=== PATIENT | female | born 1935 | race Caucasian/White ===

== ENCOUNTER 2024-07-24 11:49 | Outpatient (RCR) | payer SELFPAY | END 2024-10-22 23:59 | disposition home or self-care (01) | LOC: ANHAUDASC 11:49 | DX: Z46.1 Encounter for fitting and adjustment of hearing aid (principal) | CPT/HCPCS: 92593 ==

== ENCOUNTER 2024-08-21 08:28 | Outpatient (CLI) | payer MEDICARE, MEDICAID, SELFPAY ==
--- OUTSIDE RECORDS SUMMARY | 2024-08-21 08:43 | XMS_ITS | Encounter Summary ---
Author Organization [facility] Address [address] [place] [address] Phone Care Team Providers Care [employer] Name Role Phone Meka Cline Primary Care Provider [phone] Erica Mckeon MD Unavailable [phone] Samaria Braden MD Unavailable Leida Timmons MD Unavailable Melinda Damian CHIEF OF SERVICE Unavailable [phone] Aft, Marisa Dela Cruz MD PhD Unavailable [phone] Thelma Martinez CHIEF OF SERVICE Unavailable [phone] Roosevelt Rizzo MD Unavailable Lexie Vaz MD Unavailable [phone] Naina Mccoy OD Unavailable [phone] Nata Teran CHIEF OF SERVICE Primary Care Provider Shahida Mena Unavailable [phone] Reason for Visit * Reason Onset Date Comments SCHEDULE UPDATE 12/22/2019 Encounter Details Date Type Department Care Team (Late st Contact Info) Description 12/22/2019 Telephone [facility] Oncology [address] [place] [address] Asaf, Thelma T., RMA SCHEDULE UPDATE Social History Tobacco Use Types Packs/Day Years Used Date Smoking Tobacco: Never Smokeless Tobacco: Never Alcohol Use Standard Drinks/Week Comments No 0 (1 standard drink = 0.6 oz pur e alcohol) PHQ-2 Answer Date Recorded PHQ-2 Score 0 11/09/2018 Comments No Sex and Gender Information Value Date Recorded Sex Assigned at Not on file Legal Sex Female 3:29 AM [employer] Gender Identity Not on file Sexual Orientation Not on file documented as of this encounter Plan of Treatment Not on file documented as of this encounter Visit Diagnoses Not on filedocumented in this encounter Additional Health Concerns Infection Onset Date Last Indicated Resolved Time COVID: Suspected 11/12/2023 11/12/2023 11/12/2023 12:08 PM CDT COVID19 11/12/2023 11/12/2023 11/22/2023 3:05 AM CDT COVID: Recovered Comment:Added based on recent COVID infection. 11/22/2023 12/13/2023 02/20/2024 3:[address] documented as of this encounter Care Teams [employer] Relationship Specialty Start Date End Date Meka Cline DO PCP - General Family Medicine 10/24/18 07/29/23 Nata Teran NP [address] [address] PCP - General Family Medicine 07/30/23 Erica Mckeon MD [address] [place] [address] [address] [place] [address] Consulting Physician Endocrinology 11/22/18 09/19/23 Samaria Braden MD [address] [place] [address] [place] [address] Consulting Physician Cardiology 11/22/18 Leida Timmons MD [address] [place] [address] [address] [place] [address] Referring Physician Gastroenterology 11/22/18 03/19/22 Melinda Damian, CHIEF OF SERVICE [address] [place] [address] [address] [place] [address] Nurse Practitioner Medical Oncology 11/22/18 CatalinatMarisa MD PhD [address] [place] [address] [address] [place] [address] Surgeon Surgical Oncology 11/22/18 03/19/22 Thelma Martinez, TORRIE [address] [place] [address] [address] [place] [address] Nurse Practitioner Endocrinology Diabetes & Metabolism 01/22/20 Roosevelt Rizzo MD [address] [facility] [address] [place] [address] Consulting Physician Urology 08/25/21 03/19/22 Lexie Vaz MD [address] [facility] [address] [place] [address] Consulting Physician Nephrology 08/25/21 [place] [address] [facility] [address] [place] [address] Optometry 04/08/23 Shahida Mena, PRIMOE [address] [place] [address] Jet Inspector 02/09/24 06/11/24 documented as of this encounter
--- OUTSIDE RECORDS SUMMARY | 2024-08-21 08:43 | XMS_ITS | Continuity of Care Document ---
Author Organization [facility] Address [address] [facility] [address] [place] [phone] Phone Care Team Providers Care Embedder Name Role Phone Naina Mccoy OD Unavailable Unavailable Allergies, Adverse Reactions, Alerts Substance Reaction Status Criticality Sulfa (Sulfonamide Antibiotics) Active No Information Medications Medication Instructions Dosage Effective Dates (start - stop) Status Comments Ozempic 1 mg/dose (4 mg/3 mL) subcutaneous pen injector inject (1MG) by subcutaneous route every week on the same day of each week 1 MG - Active famotidine 20 mg tablet take 1 tablet by oral route 2 times every day 20 MG - Active amlodipine 5 mg tablet take 1 tablet by oral route every day 5 MG - Active nitrofurantoin 25 mg/5 mL oral suspension take 10 milliliter by oral route every 6 hours with food 50 MG - Active rosuvastatin 10 mg tablet take 1 tablet by oral route every day 10 MG - Active Crestor 10 mg tablet take 1 tablet (10MG ) by oral route every day 10 MG - Active spironolactone 25 mg tablet take 1 tablet (25MG) by oral route every day 25 MG - Active glimepiride 4 mg tablet take 1 tablet (4 MG) by oral route every day 4 MG - Active levothyroxine 88 mcg capsule take 1 capsule (88MCG) by oral route every day 88 MCG - Active Procedures Procedure Date Office/outpatient Visit, Est Xcellent A 3000 60 C Office/outpatient Visit, Est Xcellent A 3000 60 C No Charge Refraction Office/outpatient Visit, Est Fundus Photography W/ Report Office/outpatient Visit, Est Office/outpatient Visit, Est Fundus Photography W/ Report Visual Field Examination(s) No Charge GDX Retina Office/outpatient Visit, Est No Charge Optomap Fundus Photos 023 Office/outpatient Visit, Est Eye Exam & Treatment Eye Exam & Treatment Eye Exam & Treatment Post-op Follow-up Visit After Cataract Laser Surgery No Charge Refraction Office/outpatient Visit, Est Eye Exam & Treatment Eye Exam & Treatment Eye Exam & Treatment Eye Exam & Treatment Dilated Retinal Exam W Interpretation Au No Evidence Of Retinopathy In Prior Year Office/outpatient Visit, Est Eye Exam & Treatment Certified EMR Dilated Macular Or Fundus Exam Findings Communicat Macular Or Fundus Exam Performed 2011 Communication Performed Eye Exam & Treatment Dilated Retinal Exam W Interpretation Au No Evidence Of Retinopathy In Prior Year Post-op Follow-up Visit After Cataract Laser Surgery Eye Exam Established Pt Dilated Retinal Exam W Interpretation Ap No Evidence Of Retinopathy In Prior Year Eye Exam & Treatment Post-op Follow-up Visit Post-op Follow-up Visit Remove Cataract, Post Op Care 7 Echo Exam Of Eye-Professional 7 Remove Cataract, Insert Lens,Comanaged M Eye Exam & Treatment Advance Directives Directive Yes / No Effective Date File Name Other Directive No N/A N/A WARNING:The information contained in this section is historical and is provided for information only and does not constitute a legal document or any assurance that the information is still accurate. Please verify the information with the rodriguez of the legal document before using it for clinical purposes. Encounters Encounter Description Practice Location Reason(s) For Visit Diagnoses Date Provider Providers Copied on Encounter Office/outpa tient Visit, [facility], [facility] [address], [place], [place], [address], tel:[phone] [place] dry eye follow up (chief complaint) Dry eye syndrome of bilateral lacrimal glands 4 Darius OD Naina. [facility] [address], [address], [place], [place], [address], [place]. tel:[phone] Erica Mckeon MD.Referri chris Provider: Yuliana Davis OD L, [facility] [address], [place], [address] . tel:[phone] Office/outpa tient Visit, [facility], [facility] [address], [place], [place], [address], tel:[phone] [place] 3 Week Dry Eye FU (chief complaint) Dry eye syndrome of bilateral lacrimal glands 4 Darius OD Naina. [facility] [address], [address], [place], [place], [address], [place]. tel:[phone] Erica Mckeon MD.Referri ng Provider: Yuliana Davis OD L, [address], [place], [address] . tel:[phone] Office/outpa tient Visit, [facility], [facility] [address], [place], [place], [address], tel:[phone] [place] Dry Eye FU (chief complaint) Dry eye syndrome of bilateral lacrimal glands 0 4 Darius OD Naina. [facility] [employer] [address], [address], [place], [place], [address], [place]. tel:[phone] Erica Mckeon MD.Referri ng Provider: [place], [address], [place], [address] . tel:[phone] Office/outpa tient Visit, [facility], [address] [address], [place], [place], [address], [place] tel:[phone] [place] Follow up visit (chief complaint) Dry eye syndrome of bilateral lacrimal glandsRetinal hemorrhage of right eye May- 2 4 Darius OD Naina. [facility] [address], [address], [place], [place], [address], [place]. tel:[phone] Erica Mckeon MD.Referri ng Provider: Yuliana Davis [place] L, [address], [place], [address] . tel:[phone] Office/outpa tient Visit, [facility], [address] [address], [place], [place], [address], [place] tel:[phone] [place] Tearing and redness (chief complaint) Dry eye syndrome of bilateral lacrimal glands Apr- 6 4 Darius OD Naina. [facility] [address], [address], [place], [place], [address], [place]. tel:[phone] Erica Mckeon MD.Referri ng Provider: Yuliana Davis OD L, [address], [place], [address] . tel:[phone] Office/outpa tient Visit, [facility], [facility] [address], [place], [place], [address], [place] tel:[phone] [place] Follow up visit (chief complaint) Retinal hemorrhage of right eyeVisual field defect 2 4 Darius OD Naina. [facility] [address], [address], [place], [place], [address], [place]. tel:[phone] Erica Mckeon MD.Referri ng Provider: Yul[place] Davis [place] L, [address], [place], [address] . tel:[phone] Office/outpa tient Visit, [facility], [address] [place] [address] [address], [place], [place], [address], [place] tel:[phone] SEC [facility] Professional diabetic eye exam (chief complaint) Pseudophakia of both eyesType 2 diabetes mellitus without complicationsD ermatochalasis of both upper eyelidsDry eye syndrome of bilateral lacrimal glandsVisual field defect 3 Darius OD Naina. [address] [place] [address] [address], [address], [place], [place], [address], [place]. tel:[phone] Specialist : Erica Mckeon MD, [address] [facility] [address], [address], [place], [address]. tel:[phone] erring Provider: Yul[place] L, [address], [place], [address] . tel:[phone] [facility], [facility] [address], [place], [place], [address], [place] tel:[phone] SEC [facility] Professional Complete diabetic eye exam (chief complaint) Presence of intraocular lensType 2 diabetes mellitus without complicationsD ry eye syndrome of bilateral lacrimal glands 1 Ho Rodriguez. [address] [facility], [address], [place], [place], [address], [place]. tel:[phone] Erica Mckeon MD.Referri ng Provider: Michael Brandon, [address] [facility] [address], [place], [address] . tel:[phone] [facility], [facility] [address], [place], [place], [address], [place] tel:[phone] [place] Professional Complete Exam (chief complaint) Presence of intraocular lensType 2 diabetes mellitus without complicationsD ermatochalasis of both upper eyelids Apr- 0 Ho Rodriguez. [address] [facility] [address], [place], [place], [address], [place]. tel:[phone] Specialist : Erica Mckeon MD, [address] [place] [address] [address], [place], [address]. tel:[phone] er Provider:, [address] [place] [address] [address], [place], [address]. tel:[phone] erring Provider: Lay Carvajal, [address] [place], [address]. tel:[phone] [facility], [address] [place] [address] [address], [place], [place], [address], [place] [phone] [place] Professional Complete Exam (chief complaint) Type 2 diabetes mellitus without complicationsP seudophakia of both eyesPVD (posterior vitreous detachment), left eye Nov- 8 Ho Rodriguez. [address] [facility] [place], [address], [place]. tel:[phone] Specialist : Erica Mckeon MD, [address] [place] [address] [address], [place], [address]. tel:[phone] erring Provider: Lay Carvajal, [address] [facility], [place], [address]. tel:[phone] [facility], [address] [place] [address] [address], [place], [place], [address], [place] [phone] [place] Professional 1 mo YAG PC PO (chief complaint) Encounter for examination following surgery 7 Alena Chun. [address] [place], [address], [place]. tel:[phone] Referring Provider: Maximo Noel, [address] [facility] [address], [place], [address] . tel:[phone] Office/outpa tient Visit, Est [facility], [address] [place] [address] [address], [place], [place], [address], [place] tel:[phone] [place] Professional Blurry/dec reased vision (chief complaint) Presence of intraocular lensOther secondary cataract, left eyeType 2 diabetes mellitus without complications 7 Alena Gustafsonina. [address] [place], [address], [place]. tel:[phone] Referring Provider: Maximo Noel, [address] [facility] [address], [place], [address] . tel:[phone] [facility], [address] [place] [address] [address], [place], [place], [address], [place] [phone] [place] Professional diabetic eye exam (chief complaint) Presence of intraocular lensDry eye syndrome of bilateral lacrimal glandsEndothel ial corneal dystrophyPtosi s of eyelid, bilateralType 2 diabetes mellitus without complicationsA fter cataract of left eye not obscuring vision 7 Arthur Marsh. [address] [facility] [place], [address], [place]. tel:[phone] Referring Provider: Maximo Noel, [address] [facility] [address], [place], [address] . tel:[phone] [facility], [address] [place] [address] [address], [place], [place], [address], [place] tel:[phone] [place] Professional Yearly-DM (chief complaint) No Information 6 Arthur Marsh. [address] [facility], [facility] [place], [address], [place]. tel:[phone] Referring Provider: Maximo Noel, [address] [facility] [place], [address] . tel:[phone] [facility], [address], [place], [place], [address], tel:[phone] [place] Professional Diabetic eye exam (chief complaint) No Information - 4 Wankum Maximo. [address], [place], [place], [address], . tel:[phone] Referring Provider: Maximo Noel, [address] [facility] [address], [place], [address] . tel:[phone] [facility], [address] [place] [address] [address], [place], [place], [address], tel:[phone] [place] Professional No Information 3 Wankum Maximo. [address] [facility], [address] [place], [address], . tel:[phone] Referring Provider: Maximo Noel, [address], [place], [address] . tel:[phone] [facility], [address] [place] [address] [address], [place], [place], [address], [place] tel:[phone] SEC [facility] No Information 3 Wankum Maximo. [address], [address], [place], [place], [address], [place]. tel:[phone] Office/outpa tient Visit, [facility], [address] [place] [address] [address], [place], [place], [address], [place] tel:[phone] [place] Professional No Information 2 Wankum Maximo. [address], [address] [place], [address], [place]. tel:[phone] Referring Provider: Maximo Noel, [address] [facility], [place], [address] . tel:[phone] [facility], [address], [place], [place], [address], [place] tel:[phone] [place] Professional No Information May- 4-201 2 Ning De La Garza. [address], [place], [address], [place]. tel:[phone] Referring Provider: Maximo Noel, [address] [place], [address] . tel:[phone] [facility], [address], [place], [place], [address], [place] tel:[phone] [place] No Information 8-200 9 Wankum Maximo. [address] [facility], [address] [place], [address], [place]. tel:[phone] [facility], [address], [place], [place], [address], [place] tel:[phone] [place] No Information 7-200 8 Wankum Maximo. [address], [address] [place], [address], [place]. tel:[phone] [facility], [address], [place], [place], [address], [place] tel:[phone] [place] No Information 6-200 8 Wankum Maximo. [address], [address] [place], [address], [place]. tel:[phone] Referring Provider: Maximo Noel, [address] [place] [place], [address] . tel:[phone] [facility], [address], [place], [place], [address], [place] tel:[phone] [place] No Information Apr-2 4-200 8 Wankum Maximo. [address] [employer], [address], [place], [place], [address], [place]. tel:[phone] [facility], [address], [place], [place], [address], [place] tel:[phone] [place] No Information Nov-1 2-200 7 Dinora Sanders. [address], [address], [place], [place], [facility], [place]. tel:[phone] [facility], [address], [place], [place], [address], [place] tel:[phone] [place] No Information May-0 7-200 7 Wankum Maximo. [address] [employer], [address], [place], [place], [address], [place]. tel:[phone] [facility], [address], [place], [place], [address], [place] tel:[phone] [place] Professional No Information Apr-1 6-200 7 Wankum Maximo. [address] [employer], [address], [place], [place], [address], [place]. tel:[phone] [facility], [address], [place], [place], [address], [place] tel:[phone] [place] No Information Mar-2 8-200 7 Dinora Sanders. [address] [employer] [address], [place], [address], [place]. tel:[phone] Referring Provider: Marilyn Simpson, [address] [place], [address]. tel:[phone] [facility], [address] [facility] [address], [place], [place], [address], tel:[phone] [place] No Information 7 Dinora Sanders. [address], [place], [facility], [place]. tel:[phone] Referring Provider: Marilyn Simpson, [address], [place], [place], [facility]. tel:[phone] [facility], [address], [place], [place], [address], tel:[phone] [facility] [place] No Information 7 Dinora Sanders. [address], [place], [facility], [place]. tel:[phone] Referring Provider: Marilyn Simpson, [address], [place], [place], [facility]. tel:[phone] [facility], [address], [place], [place], [address], tel:[phone] [place] Professional No Information 7 Dinora Sanders. [address], [place], [facility], [place]. tel:[phone] Referring Provider: Marilyn Simpson, [address] [place], [place], [facility]. tel:[phone] Family History Family Member Type Diagnosis Age At Onset Problem (finding) Close relative Problem (finding) Diabetes mellitus Payers Payer name Insurance type Covered alliance party ID Authorclaira serafin(s) [employer] [id number] Social History Type Description Quantity Date Captured Comments Alcohol Use Details No Caffeine Use Details No Tobacco Use Status Current non-smoker Smoking Status Never smoker Non-Smoking Tobacco Use Details : No Details Available : No Details Available Sex Female Sexual Orientation Don't Know Gender Identity Female Chief Complaint And Reason For Visit From encounter dated '10/18/2023 13:30'. dry eye follow up (chief complaint). Description: The 88 year old patient presents for a 6 week dryeye follow up. Patient states she took vitamin A and is now finished. Patient is not using any drops. Patient states her eyes are doing pretty good. Speed score 7/28 TBUTT OD-2.61 OS 1.38 Reason For Referral Reason For Referral No Information Plan Of Treatment Date Type Action Status Patient Education Type 2 Diabetes: Care I nstructions completed Patient Education Type 2 Diabetes: Care I nstructions completed History Of Present Illness Encounter Date Complaint History Of Prese nt Illness dry eye follow up The 88 year ol d patient presents for a 6 week dry eye follow up. Patient states she took vitamin A and is now finished. Patient is not using any drops. Patient states her eyes are doing pretty good. Speed score 7/28 TBUTT OD-2.61 OS 1.38 3 Week Dry Eye FU The 88 year ol d patient presents for evaluation of 3 Week Dry Eye FU in the right eye and left eye. Pt states OU does feel better than last visit. Pt has been taking gtts but doesn't know what gtts shes taking. Pt states that gtts make their eyes feel gummy. Dry Eye FU The 88 year old patient presents for evaluation of Dry Eye FU in the right eye and left eye. Pt states that ever since they started using the gtts Ou feels gummy and runny a lot. Pt states in mostly in the morning when they wake up. Pt has not been using any gtts for the last few weeks pt states. Speed score today was 28/28 and TBUT OD 2.2 OS 4.27 Follow up visit The 87 year old patient presents for a 1 month dry eye evaluation. Patient is using Miebo qid ou and Lotemax? bid ou. Patient states her eyes are doing much better then last visit. Speed score 5/28 TBUTT OD 3.44 OS 5.74 Tearing and redness The 87 year old patient presents for evaluation of Tearing and redness in the right eye. Pt. states since a few days after her last visit her OD was tearing and having thick mucus coming out of OD. Pt. states she awakes with lid matted closed. Pt. has also noticed her vision is more blurred in OD. Pt. did see her PCP after last visit and was told after blood work she had a UTI. Pt. is not using any drops or and type of lid scrubs. Follow up visit The 87 year old patient presents for a 4 month follow up with a VF and Mac OCT. Patient is a Type II diabetic. Patient is pseudo ou with yag caps ou. Patient is not sure how her eyes are doing. Patient denies any burning or irritation. A1C 7.4 diabetic eye exam The 87 year ol d patient presents for a complete Type II diabetic exam ou. Patient is pseudo ou with yag caps ou. BS was 170 this am. Patient states she recently had sx for an infection??. Patient c/o since sx for infection OD hurts and gets water pockets underneath. Patient wears reading glasses. Dr. Mckeon treats her diabetes. Complete diabetic eye exam The [age] year old female presents for evaluation of Complete diabetic eye exam in the right eye and left eye. Hx of PCIOL OU, YAG PC OU, and PVD OS. Pt reports VA has worsened slightly at DV x1.5 yrs. Pt is IDDM with A1C 7.9 and BS 94 02/18/21, followed by Dr. Cline. Pt is not using any gtts at this time. Pt denies pain or discomfort. Complete Exam The 83 year old female presents for evaluation of Complete Exam in the right eye and left eye. Hx of PCIOL OU (OD set for NV), YAG PC OU, and PVD OS. Pt is NIDDM II x 31 yrs, followed by Dr. Mckeon, pt reports BS was 127 this am and A1C was 8 about 2 mos ago. Pt denies any changes in VA, OU, since last appt. Pt reports she doesn't use any gtts, OU. Pt reports OU has been dry for a long time and she wonders what she should be using for that. Complete Exam The 82 year old female presents for evaluation of Complete Exam in the right eye and left eye. Hx of PCIOL OU (OD set for NV) and YAG PC OU. Pt is NIDDM II x 30yrs. Dr. Mckeon follows DM. Pt reports BS was 138 this afternoon and A1C was 7 in July/August. Pt denies any changes in VA, OU, since last appt. Pt reports she doesn't use any gtts and no pain, irritation or discomfort today, OU. 1 mo YAG PC PO The 81 year old female presents for 1 mo YAG PC PO in the left eye. Hx of PCIOL OU (OD set for NV) and YAG PC OU. Pt is NIDDM II. Pt reports VA is much better, OS, since YAG PC OS. Pt reports she hasn't noticed any flashes of light, OU. Pt reports she has been noticing a bug/shadow, temporal, OS, since YAG PC OS. Pt reports she doesn't use any gtts and no pain, irritation or discomfort today, OU. Blurry/decreased vision The 81 y ear old female presents for Blurry/decreased vision in the left eye. Patient is a Type II diabetic. Patient states BS is good. Patient is pseudo ou with yag cap OD. Patients OD is for close up and normally wears a contact but is out of them. diabetic eye exam The 81 year ol d female presents for a complete Type II diabetic eye exam ou. BS was 109 yesterday. Patient denies any changes in vision ou. Patient wears a contact lens OD for close up. Yearly-DM The 79 year old female presents for yearly Diabetic Eye Exam. Patient has a history of PCIOL OU, and YAG OD, Diabetes Type 2 with no complications. Patient has been a Type 2 Diabetic, IDDM (takes an injection once daily called moore?), for 20+ years. Patient says her blood sugar this morning was 120 and her last A1C was 6.?% 2 months ago. Patient states she does not take any eye drops. Diabetic eye exam The 78 year ol d female presents for a Diabetic eye exam in the right and left eye. Patient denies any problems or changes. States she needs a renewal of her contact lens RX OD only. Functional Status Date Functional Assessmen t No Information Instructions Date Instruction Additional Infor susan Impression/Plan Impression/Plan Impression/Plan Impression/Plan Impression/Plan Impression/Plan Impression/Plan Impression/Plan Impression/Plan Impression/Plan Return in 6 months w wyatt Carvajal M.D. for Complete Exam. Related to Encounter for examination following surgery Follow up - Return i n 6 months with Lay Carvajal M.D. for Complete Exam. Related to Encounter for examination following surgery Impression/Plan - Go od results after YAG capsulotomy OS on 12/03/16. Doing well. VA improved and IOP well controlled. RTC 6 mths for CEE, sooner prn. Related to Encounter for examination following surgery Presence of intraocu lar lens - Surgery risks, alts and benefits discussed Related to Presence of intraocular lens Impression/Plan - Di abetes type II: no background retinopathy, no signs of neovascularization noted. Discussed ocular and systemic benefits of blood sugar control. Related to Type 2 diabetes mellitus without complications Impression/Plan - Vi sually significant PCO OS. Recommend YAG capsulotomy OS today. R/B/A discussed. Pt agreed and consented. s/p YAG capsulotomy OS on 12-03-16. RTC 2-4 wks for follow up with Dr. Carvajal. Related to Other secondary cataract, left eye Impression/Plan - Ps eudophakic OD, doing well. Pt states she wheres contact lens in OD only and would like the OD CL Rx done by Dr. Gibson on 07/02/16. Will give her OD Rx today. Monitor. Related to Presence of intraocular lens Presence of intraocu lar lens - Educational material given Related to Presence of intraocular lens Follow up - Return i n 1 year with for Complete Exam. Impression/Plan - Di scussed diagnosis in detail with patient. No change contact lens rx OD. Pt will call if wants contact lens rx. Recommend artificial tears prn for dry eyes. Gutatta OU stable no treatment needed at this time. Ptosis OU will continue to monitor. IOLs in good position, open pc OD, pcf OS. Discussed Yag PC OS if ever indicated in the future. Diabetes type II: no background retinopathy, no signs of neovascularization noted. Discussed ocular and systemic benefits of blood sugar control. DM letter sent to Dr Medina. Return to clinic in 1 year for complete diabetic exam or sooner with any problems. Follow up - Return i n 1 year with Maximo Gibson M.D. for Complete Exam. Impression/Plan - Di abetes type II: no background retinopathy, no signs of neovascularization noted. Discussed ocular and systemic benefits of blood sugar control. DM letter sent to Dr Cheng. Pt wears near contact lens OD UV 55 BC 8.6 +3.00. Return to clinic in 1 year for complete exam or sooner with any problems. - DM letters to DR. Keller and Dom tel Related to Diabetes Mellitus Type 2, Uncomplicated - 1yr Related to Diabe jigar Mellitus Type 2, Uncomplicated - UV 55 BC8.6 +3.00 od rx writte n Related to LENS REPLACEMENT NEC pseudo with capsulot romina ou - no tx needed Related to Pseudophakia - 1yr Related to Diabe jigar Type II no bureau director - DM letter Related to Di abetes Type II unhappy with cl from [facility], wears old one from [facility] without brand name,just says 55uv soft cl lens - pt will call with brand name if on box and we will reorder otherwise she'll go back to [facility] Related to Presbyopia wants ctls for cristal perez. - ref [facility]. Pseudophakia, OU - stable. Relat ed to Pseudophakia Diabetes Type II, - no bureau director, no csme, letter to [facility] Related to Diabetes Type II Assessments Type Assessment Date assessment Dry eye syndrome of bilateral la crimal glands Patient Care Teams Name Effective Dates (start - stop) Status Members No Information
--- OUTSIDE RECORDS SUMMARY | 2024-08-21 08:43 | XMS_ITS | Clinical Summary ---
Author Organization [facility] Healthcare Address [address] [place] [address] Care Team Providers Care Senior Core Java Developer Name Role Phone Samaria Braden MD Unavailable Melinda Damian NP Unavailable [phone] Thelma Martinez NP Unavailable [phone] Lexie Vaz MD Unavailable Naina Mccoy OD Unavailable Nata Teran NP Primary Care Provider [phone] Allergies Active Allergy Reactions Criticality Noted Date Comments Furosemide Itching Low 06/02/2023 Lasix has a sulfa component. Sulfa (Sulfonamide Antibiotics) Rash Medium Medications pen needle, diabetic 31 gauge x /16 needle Use to inject insulin 2 times each day DX E11.65 200 each 3 04/24/19 20 Active azelastine (ASTELIN) 137 mcg (0.1 %) nasal sprayIndications:Non-se asonal allergic rhinitis due to pollen Administer 2 sprays into each nostril daily Use in each nostril as directed 60 mL 11 11/06/19 22 Active aspirin 81 mg enteric coated tabletIndications:Hyper tension associated with type 2 diabetes mellitus (HCC),Dyslipidemia with low high density lipoprotein (HDL) cholesterol with hypertriglyceridemia due to type 2 diabetes mellitus (HCC) TAKE 1 TABLET BY MOUTH EVERY DAY 90 tablet 3 01/27/20 22 Active lancets misc Use to monitor blood glucose two times daily DX E11.65 200 each 3 01/02/20 23 Active famotidine (PEPCID) 20 mg tabletIndications:Laryn gopharyngeal reflux (LPR) Take 1 tablet (20 mg total) by mouth 2 (two) times a day 180 tablet 2 02/26/20 23 Active loteprednol (LOTEMAX) 0.5 % ophthalmic suspension Administer 1 drop into affected eye(s) every 12 hours 04/27/19 24 Active perfluorohexyloctane, PF, (Miebo) 100 % drops Administer 1 drop into affected eye(s) every 6 hours 04/27/19 24 Active cycloSPORINE (RESTASIS) 0.05 % ophthalmic emulsion Administer 1 drop into affected eye(s) every 12 hours 08/09/19 24 Active amLODIPine (NORVASC) 5 mg tablet TAKE 1 TABLET (5 MG TOTAL) BY MOUTH DAILY. 90 tablet 3 10/11/19 24 2024 Active semaglutide (Ozempic) 0.25 mg or 0.5 mg (2 mg/3 mL) pen injector injectionIndications:ty pe 2 diabetes mellitus Inject 0.5 mg under the skin once a week E11.65 9 mL 3 10/13/19 24 Active docusate sodium (COLACE) 100 mg capsuleIndications:cons tipation Take 2 tablets daily for constipation. 180 capsule 4 01/31/20 24 Active bisacodyl EC (DULCOLAX EC) 5 mg EC tabletIndications:Bowel Evacuation,constipation Take 2 tablets (10 mg total) by mouth daily . Take to have at least 3 bowel movement weekly. 180 tablet 4 01/31/20 24 Active glimepiride (AMARYL) 2 mg tabletIndications:Type 2 diabetes mellitus with hyperglycemia, without long-term current use of insulin (HCC) Take 2 tablets in the am and 1 tablet in the afternoon. e11.9 270 tablet 4 01/31/20 24 Active fluticasone propionate (FLONASE) 50 mcg/actuation nasal spray SPRAY 2 SPRAYS INTO EACH NOSTRIL EVERY DAY 48 mL 3 02/07/20 24 Active lancets misc 1 each by other route 2 (two) times a day Use to monitor blood sugar daily. E11.65 200 each 4 05/04/19 25 Active blood-glucose meter kit Use daily as directed for monitoring of blood sugar for diabetes. E11.65 1 kit 1 05/04/19 Active blood glucose diagnostic (glucose blood) strip Check blood sugar 2x times a day or as directed. E11.65 200 each 4 05/04/19 Active levothyroxine (SYNTHROID) 88 mcg tablet Take 1 tablet (88 mcg total) by mouth daily 90 tablet 3 05/18/19 25 2025 Active Active Problems Problem Noted Date Diagnosed Date Need for hepatitis B screening test 03/06/2024 COVID-19 11/12/2023 Assessment & Plan (11/12/2023 6:45 PM CDT): POCT COVID-19 is positive. Discussed diagnosis with patient. Significantly increase oral fluids Fluid replacement with electrolytes include Pedialyte, Gatorade If experiencing diarrhea and/or vomiting, drink 4-8 oz of fluids after every episode until symptoms resolve Good handwashing Try to minimize exposure to others Monitor for signs/symptoms of dehydration or worsening of symptoms Get adequate rest Diet as tolerated, BRAT (bananas, rice, applesauce, toast) is good to help reinitiate solids Follow up if symptoms are not resolving Start on Paxlovid as discussed. Hold simvastatin while taking the Paxlovid. Acute cough 11/12/2023 Assessment & Plan (11/12/2023 6:40 PM CDT): Discussed cough related to PND versus COVID 19. Will have her start on some fluticasone to try to reduce some of the PND. Can take Mucinex DM if the cough persists. Low grade fever 11/12/2023 Assessment & Plan (11/12/2023 6:42 PM CDT): Temperature 99.2 , typically runs a contra temp, was 96.8 on 08/31/2023. Discussed Tylenol p.r.n. to reduce fever and lessen any pain. Sensation of pressure in bladder area 09/20/2023 Assessment & Plan (09/20/2023 2:34 PM CDT): This is an ongoing complaint She has seen Urology but reports having increased bladder pressure today Urinalysis reflex to culture and micro ordered Screening for osteoporosis 07/30/2023 Assessment & Plan (07/30/2023 4:18 PM CDT): DEXA scan ordered Acute cystitis without hematuria 07/30/2023 Assessment & Plan (07/30/2023 4:19 PM CDT): Discussed diagnosis. Treat with nitrofurantoin 100 mg b.i.d. x7 days. Instructed to increase fluids especially sugar free cranberry juice. Send urine for UA with reflex to C&S. Instructed patient to follow-up if symptoms are not resolving Facial lesion 07/30/2023 Assessment & Plan (08/31/2023 6:49 PM CDT): Referral to different web design instructor as requested. No visible change in facial lesion Assessment & Plan (07/30/2023 4:20 PM CDT): Referral to dermatology as requested Disorder of lacrimal gland 07/29/2023 Retinal hemorrhage of right eye 04/08/2023 Assessment & Plan (04/08/2023 3:29 PM COIN MACHINE MECHANIC): Labs ordered per program scheduler's request. Dysuria 04/08/2023 Mild aortic stenosis 2022 Non-seasonal allergic rhinitis due to pollen Assessment & Plan (11/12/2023 6:44 PM CDT): Trial fluticasone nasal spray as discussed. Assessment & Plan (11/05/2021 10:44 AM CDT): Nasal saline spray (Simply saline, [employer] Remedies, [place], [place]) 2 second sprays or 2 squeezes into each nostril while looking down over the sink, do not need to sniff in. Astelin (azelastine) 2 sprays into each nostril while looking down over the sink, do not sniff in or blow nose after use for at least 30 minutes daily Sensorineural hearing loss ( SNHL) of left ear with restricted hearing of right ear 11/05/2021 Assessment & Plan (11/05/2021 10:44 AM CDT): Continue Hearing aids Obtained hearing test from [facility] [address] [id number] [phone] Decreased hearing of both ears 08/25/2021 Assessment & Plan (08/31/2023 6:54 PM CDT): Bilateral hearing aids, has difficulty hearing even with them. Discussed following up with the medical education specialist to make sure her hearing aids are in good working order Assessment & Plan (08/25/2021 11:16 AM CDT): Referred to ENT for further eval/mgmt. Urinary frequency 08/25/2021 Assessment & Plan (09/03/2022 3:52 PM CDT): Chronic, referred to urology for further eval/mgmt. Assessment & Plan (03/23/2022 10:08 AM COIN MACHINE MECHANIC): Labs ordered, will follow. Assessment & Plan (08/25/2021 11:16 AM CDT): UA ordered, will follow. Chronic pain syndrome 01/31/2021 Assessment & Plan (08/31/2023 6:53 PM CDT): Patient does not take any analgesics Assessment & Plan (01/31/2021 12:35 PM COIN MACHINE MECHANIC): Referred to pain mgmt per patient's request. Traumatic complete tear of left rotator cuff 02/2021 Assessment & Plan (01/31/2021 12:35 PM COIN MACHINE MECHANIC): H/o of rotator cuff injury, patient would like to discuss Tx with Ortho at this time. Referral placed. Postnasal drip 08/22/2020 Assessment & Plan (09/03/2022 3:53 PM CDT): Zyrtec daily recommended. Stage 3a chronic kidney disease 02/05/2020 Assessment & Plan (11/12/2023 6:43 PM CDT): Stressed need to increase fluids. Renal dosing on the Paxlovid Assessment & Plan (09/03/2022 3:57 PM CDT): Stable, increase water intake, continue losartan. Assessment & Plan (01/31/2021 12:34 PM COIN MACHINE MECHANIC): Stable, cont current meds. Assessment & Plan (02/05/2020 3:19 PM COIN MACHINE MECHANIC): Increase water intake, continue current medications. Influenza vaccine refused 03/28/2019 Urge incontinence of urine 11/22/2018 Assessment & Plan (09/03/2022 3:57 PM CDT): Chronic, referred to urology for further eval/mgmt. Assessment & Plan (03/28/2019 11:30 AM COIN MACHINE MECHANIC): Clinically improved, continue current meds. Assessment & Plan (11/22/2018 10:33 AM CDT): Side-effects from oxybutynin, discontinue. Referred to urology. Patient to continue to use bladder leak pads. Overweight with body mass in dex (BMI) of 26 to 26.9 in adult 11/22/2018 Assessment & Plan (03/06/2024 4:02 PM COIN MACHINE MECHANIC): BMI 26.73. Assessment & Plan (08/31/2023 6:52 PM CDT): BMI 27.10. Encourage weight loss Assessment & Plan (07/30/2023 4:18 PM CDT): BMI 26.08 Assessment & Plan (03/09/2023 2:51 PM COIN MACHINE MECHANIC): This is a chronic condition which continues 2 lb weight gain since last office visit Encouraged continue healthy eating Assessment & Plan (03/28/2019 11:31 AM COIN MACHINE MECHANIC): Improved. Encouraged patient to decrease weight, increase daily exercise, and modify diet. Assessment & Plan (11/22/2018 10:34 AM CDT): Worsening. Encouraged patient to decrease weight, increase daily exercise, and modify diet. Constipation 10/26/2018 Overview (10/26/2018): Added automatically from request for surgery [id number] Rotator cuff tear, non-traumatic, left 8 Assessment & Plan (01/03/2020 11:15 AM CDT): Ultrasound done in November of 2017. Patient states she fell 1 year ago. I am unsure if the fall occurred 1 year or 2 years ago. However she is complaining of ongoing left shoulder pain. She also complains of a pulling sensation from her breast surgery status post breast cancer. Patient was requesting refill on tramadol which she had not had filled since May of 2018 it appears. [facility] checked and there is no record of tramadol being filled in the past year. I was hesitant to restart filling tramadol. Patient states she had a large supply and had been taking it at bedtime an 1 during the day as needed. I told her I did not want to refill the tramadol at this time but would start anti-inflammatories naproxen 500 b.i.d. and refer her to orthopedics again to see if there is something that could be done about the pain in her shoulder. Assessment & Plan (03/28/2019 11:30 AM COIN MACHINE MECHANIC): Unable to see Ortho because they did not take her insurance, she now has new insurance. Contact info given to patient to contact Ortho to try to honorio appt. Assessment & Plan (11/22/2018 10:33 AM CDT): Symptomatic, referred to Ortho. For further eval/mgmt. Vitamin D deficiency 11/16/2017 Assessment & Plan (08/31/2023 6:52 PM CDT): Continue vitamin-D supplement Assessment & Plan (07/30/2023 4:17 PM CDT): Vitamin-D level ordered Assessment & Plan (03/28/2019 11:29 AM COIN MACHINE MECHANIC): Asx. Continue current therapy. Assessment & Plan (11/22/2018 10:30 AM CDT): Take daily supplement of vitD3 2000 iu daily. HER2-positive carcinoma of left breast 8 Assessment & Plan (03/28/2019 11:31 AM COIN MACHINE MECHANIC): Followed by oncology. Chronic eczematous otitis externa of both ears 0 09/06/2017 Assessment & Plan (09/06/2017 8:36 AM CDT): Today's examination revealed evidence of eczema type changes to the external auditory canal causing patient's ear pain and itching. No obvious infectious process appreciated. Patient will be placed on topical steroid cream applied b.i.d. times 10 days and p.r.n.. Patient will follow back up in 3 weeks should her symptoms continue to persist. Laryngopharyngeal reflux (LPR) 09/06/2017 Assessment & Plan (03/03/2023 9:13 PM COIN MACHINE MECHANIC): Asymptomatic. Stable. Continue current prescription medications, famotidine. Assessment & Plan (03/23/2022 10:10 AM COIN MACHINE MECHANIC): Clinically improved, continue current prescription medications. Assessment & Plan (08/22/2020 1:09 PM CDT): Stable. Cont. Current meds. Assessment & Plan (07/12/2019 9:50 AM CDT): Symptomatic, trial of famotidine. Rx sent. Do not take ranitidine. Assessment & Plan (03/28/2019 11:29 AM COIN MACHINE MECHANIC): Clinically improved, continue current meds. Assessment & Plan (11/22/2018 10:32 AM CDT): Clinically improved, continue current meds. Ranitidine 300mg qd, managed by ENT. Assessment & Plan (09/06/2017 8:37 AM CDT): Patient is also exhibiting symptoms of laryngopharyngeal reflux. She has had gradual increased difficulties with swallowing primarily solid foods with excessive mucus production, throat clearing and foreign body sensation. Patient will be placed on Zantac 150 mg b.i.d.. Patient was provided with educational material regarding reflux precautions. Patient was instructed to refrain from eating a meal approximately 3 hours prior to bedtime. Patient was instructed to elevate the head of the bed by approximately 8 inches. Patient was to refrain from consuming spicy greasy fatty foods, dairy products, and excessive caffeine use. Patient was also advised to increase water consumption. Patient was also instructed on weight reduction and exercise regimen. Patient was also instructed on the importance of compliance with medications. 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 Assessment & Plan (01/31/2024 5:39 PM COIN MACHINE MECHANIC): This is a chronic condition which is at goal goal of TSH between 0.3 to 4.2 mclUnits/ml Lab Results Component Value Date TSH 2.44 09/20/2023 TSH 5.50 (H) 07/30/2023 TSH 0.32 04/08/2023 Continue Levothryoxine 75 mcg po daily in am Discussed the importance of taking Levothryoxine on a empty stomach, which means one hour before eating or two hours after eating, food in the stomach will interfere with absorption of Levothyroxine, Calcium, antacids and iron supplements will interfere with the absorption of Levothyroxine, encouraged to take these at a different time of the day. Assessment & Plan (09/20/2023 2:36 PM CDT): This is a chronic condition which is elevated, not at goal goal of TSH between 0.3 to 4.2 mclUnits/ml Personally reviewed lab. Lab Results Component Value Date TSH 5.50 (H) 07/30/2023 TSH 0.32 04/08/2023 TSH 0.12 (L) 06/23/2022 Continue Levothryoxine 75 mcg po daily in am Discussed the importance of taking Levothryoxine on a empty stomach, which means one hour before eating or two hours after eating. Discussed food in the stomach will interfere with absorption of Levothyroxine. Discussed Calcium, antacids and iron supplements will interfere with the absorption of Levothyroxine, encouraged to take these at a different time of the day. Repeat TSH cascade today Assessment & Plan (08/31/2023 6:50 PM CDT): Asymptomatic. Continue levothyroxine 75 mcg daily Assessment & Plan (07/30/2023 4:15 PM CDT): Continue levothyroxine 75 mcg daily. Thyroid cascade ordered Assessment & Plan (04/08/2023 3:29 PM COIN MACHINE MECHANIC): Most recent TSH was out of range, will repeat TSH. Managed by endocrinology. Assessment & Plan (03/03/2023 9:14 PM COIN MACHINE MECHANIC): Asymptomatic. Stable. Continue current prescription medications, levothyroxine. Managed by Endocrinology. Assessment & Plan (06/23/2022 10:36 AM CDT): This is a chronic condition which is not at goal. Personally reviewed lab. Lab Results Component Value Date TSH 7.99 (H) 03/20/2022 TSH 0.40 08/25/2021 TSH 0.76 08/22/2020 Goal is for TSH to be between 0.3 to 4.2 mclUnits/ml Continue Levothryoxine 100 mcg po daily in am Discussed the importance of taking Levothryoxine on a empty stomach, which means one hour before eating or two hours after eating. Discussed food in the stomach will interfere with absorption of Levothyroxine. Discussed Calcium, antacids and iron supplements will interfere with the absorption of Levothyroxine, encouraged to take these at a different time of the day. Repeat tsh. Assessment & Plan (03/23/2022 10:09 AM COIN MACHINE MECHANIC): Asymptomatic. Stable. Continue current prescription medications. Assessment & Plan (02/20/2022 12:27 PM COIN MACHINE MECHANIC): This is a chronic condition which is stable, at goal. Personally reviewed lab. Lab Results Component Value Date TSH 0.40 08/25/2021 TSH 0.76 08/22/2020 TSH 0.47 01/03/2020 Goal is for TSH to be between 0.3 to 4.2 mclUnits/ml Continue on Levothryoxine 88 mcg po daily in am Discussed the importance of taking Levothryoxine on a empty stomach, which means one hour before eating or two hours after eating. Discussed food in the stomach will interfere with absorption of Levothyroxine. Discussed Calcium, antacids and iron supplements will interfere with the absorption of Levothyroxine, encouraged to take these at a different time of the day. Assessment & Plan (11/10/2021 12:29 PM CDT): This is a chronic condition which is stable, at goal. Personally reviewed lab. Lab Results Component Value Date TSH 0.40 08/25/2021 TSH 0.76 08/22/2020 TSH 0.47 01/03/2020 Goal is for TSH to be between 0.3 to 4.2 mclUnits/ml Continue on Levothryoxine 88 mcg po daily in am Discussed the importance of taking Levothryoxine on a empty stomach, which means one hour before eating or two hours after eating. Discussed food in the stomach will interfere with absorption of Levothyroxine. Discussed Calcium, antacids and iron supplements will interfere with the absorption of Levothyroxine, encouraged to take these at a different time of the day. Assessment & Plan (08/25/2021 11:10 AM CDT): Asymptomatic. Stable. Continue current prescription medications. Assessment & Plan (03/04/2021 3:24 PM COIN MACHINE MECHANIC): Asymptomatic. Stable. Continue current prescription medications. Assessment & Plan (08/22/2020 1:08 PM CDT): Asx. Continue current therapy. Assessment & Plan (02/05/2020 3:19 PM COIN MACHINE MECHANIC): Asx. Continue current therapy. Assessment & Plan (01/03/2020 11:13 AM CDT): Check TSH today. Continue current medication. Assessment & Plan (07/12/2019 9:50 AM CDT): Cont current dosage of levothyroxine 88 mcg daily. Will not repeat blood work at this time d/t COVID outbreak and patient's high-risk. Assessment & Plan (03/28/2019 11:29 AM COIN MACHINE MECHANIC): Asx. Continue current therapy. Assessment & Plan (11/22/2018 10:32 AM CDT): Symptomatic, will check TSH. Will follow. Continue levothyroxine 88 mcg qd. Assessment & Plan (08/10/2017 1:28 PM CDT): Patient with history of Graves' disease and treated with DOWNEY. Patient is clinically euthyroid Levothyroxine is being managed by Dr. Nayak TSH was normal in March. Pt. Has bradycardia, fatigue, leg swelling Pt. Will be seeing her PCP on Wednesday Type 2 diabetes mellitus wit h hyperglycemia, without long-term current use of insulin 04/23/2015 Overview (11/22/2018): Managed by Endocrinology-Dr. Mckeon Assessment & Plan (01/31/2024 5:38 PM COIN MACHINE MECHANIC): This is a chronic condition which is elevated, not at goal . Goal is less than 7%. Personally reviewed most recent A1c - Lab Results Component Value Date HGBA1C 8.2 01/31/2024 Personally reviewed POC blood sugar- elevated, not at goal of 80-180 Lab Results Component Value Date POCGLU 222 01/31/2024 Medication- Continue on Ozempic 0.5mg weekly, Colace 100 mg 2 tabs nightly Dulcolax 2 tablets nightly-encouraged to have a bowel movement 3 times per week change glimeperide 2mg take 2 tabs in the a.m., and 1 tab in the p.m. Monitor blood sugar 2times a day. Encouraged annual eye exam. Monofilament foot exam completed. Protective senses diminished but intact eGFR- 52 Kidney function-abnormal Urine microalbumin/creatinine ratio - at goal. Goal is <30 Continue amlodipine, HCTZ Assessment & Plan (09/20/2023 2:35 PM CDT): This is a chronic condition which is elevated but remains at goal . Goal is less than 7-8% due to age. Personally reviewed most recent A1c - Lab Results Component Value Date HGBA1C 8.0 (H) 07/30/2023 Personally reviewed POC blood sugar- not at goal of 80-180 Lab Results Component Value Date POCGLU 219 09/20/2023 Medication-continue Ozempic 0.5 mg, weekly continue glimepiride 2 mg twice daily Monitor blood sugar daily alternating a.m. and p.m. Encouraged annual eye exam. Personally reviewed CMP eGFR- 52 Kidney function-abnormal Urine microalbumin/creatinine ratio - at goal. Goal is <30 Continue amlodipine, hydrochlorothiazide Assessment & Plan (08/31/2023 6:51 PM CDT): Continue to limit carbohydrates in diet and take current medications. Has appointment to follow up with Thelma Martinez NP endocrinology on 09/20/2023 Assessment & Plan (07/30/2023 4:16 PM CDT): Continue to limit carbohydrates in diet. Continue current medications. Managed by endocrinology has appointment on 09/20/2023 with Thelma Martinez NP Assessment & Plan (03/09/2023 2:49 PM COIN MACHINE MECHANIC): This is a chronic condition which is at goal of less than 7%. Personally reviewed most recent A1c - Lab Results Component Value Date HGBA1C 7.4 03/09/2023 Personally reviewed POC blood sugar- not at goal 80-180 Lab Results Component Value Date POCGLU 210 03/09/2023 Medication- Continue Ozempic 0.5mg weekly, continue glimeperide 2mg twice daily. Monitor blood sugar 2 times a day. Encouraged annual eye exam. Monofilament foot exam completed. loss of protective senses. Personally reviewed CMP eGFR- 61 Kidney function- abnormal Urine microalbumin/creatinine ratio - at goal <30 not treated with pricilla/arb. Treated with amlodipine B/P today-at goal of <140/90. continue amlodpine Personally reviewed lipid panel. at Goal of less than 70. Continue rosuvastatin Assessment & Plan (03/03/2023 9:14 PM COIN MACHINE MECHANIC): A1c at goal of less than 8.0, continue current prescription medications, glimepiride, rosuvastatin, Ozempic. Managed by Endocrinology. Assessment & Plan (11/09/2022 11:37 AM CDT): This is a chronic condition which has worsening but remains at goal of less than 8%. She reports undergoing some recent mouth surgery at [facility]. I explain even though her A1c has increased that does not mean that we want to increase her medication. Especially since she is 87 and is somewhat frail. We discussed the importance of avoiding hypoglycemia which can lead injury in the elderly. We decided we will see each other again in 3 months if her blood sugars remain elevated then we can set her increasing her medication. Personally reviewed most recent A1c - Lab Results Component Value Date HGBA1C 7.8 11/09/2022 Personally reviewed POC blood sugar- not at goal 80-180 Lab Results Component Value Date POCGLU 221 11/09/2022 Medication- Continue Ozempic 0.5mg weekly, continue glimeperide 2mg twice daily. Monitor blood sugar 2 times a day. Encouraged annual eye exam. Monofilament foot exam completed. protective senses intact loss of protective senses. Treated with Gabapentin/Lyrica Personally reviewed CMP eGFR-54 Kidney function-abnormal Urine microalbumin/creatinine ratio - at goal <30 not treated with pricilla/arb, treated with amlodipine B/P today- not at goal of <140/90. continue amlodipine. Personally reviewed lipid panel. Not at Goal of less than 70. Continue rosuvastatin, Assessment & Plan (09/03/2022 3:54 PM CDT): A1c at goal of less than 8.0, continue current prescription medications, glimepiride, losartan, rosuvastatin, Ozempic. Managed by endocrinology. Assessment & Plan (06/23/2022 10:35 AM CDT): This is a chronic condition which is at goal of less than 8%. Personally reviewed most recent A1c - Lab Results Component Value Date HGBA1C 7.3 06/23/2022 Personally reviewed POC blood sugar- not at goal 80-180 Lab Results Component Value Date POCGLU 197 06/23/2022 Medication- Continue ozempic 0.5mg weekly. Decrease glimeperide to 2mg twice daily to avoid morning hypoglycemia. Monitor blood sugar 1- 2x times a day. Encouraged annual eye exam. Monofilament exam- decreased sensation to feet, but still some sensation is present. sees Dr. Flores. Urine microalbumin/creatinine ratio - At goal of <30, continue lisinopril . Personally reviewed labs: GFR- 71 Kidney function- normal B/P today-at goal of less than 140/90. Continue lisinopril. personally reviewed LDL-82. At goal of less than 70. continue crestor 10mg daily. Assessment & Plan (03/23/2022 10:09 AM COIN MACHINE MECHANIC): A1c at goal of less than 8.0, continue current prescription medications. Managed by Endocrinology. Assessment & Plan (02/20/2022 12:26 PM COIN MACHINE MECHANIC): This is a chronic condition which is at goal of less than 8% with morning hypoglycemia. Personally reviewed A1c-7.3%, at goal less than 8%. Personally reviewed blood sugar-229. Not At goal 80-180 Medication- Continue ozempic 0.5mg weekly. Decrease glimeperide to 2mg twice daily to avoid morning hypoglycemia. Monitor blood sugar 2x times a day. Encouraged annual eye exam. Monofilament exam- decreased sensation to feet, but still some sensation is present. sees Dr. Flores. Urine microalbumin/creatinine ratio - Latest Reference Range & Units 03/04/21 15:00 Microalbumin, POC mg/L 10 continue on lisinopril . At goal of <30 Personally reviewed labs: GFR- 71 Kidney function- abnormal B/P today- not at goal of less than 140/90 l. States,not taking blood pressure medication as it makes her too weak.. Encouraged her to take lisinopril as ordered. personally reviewed LDL- 59. At goal of less than 70 continue crestor 10mg daily. No history of macrovascular disease - CVA, [place]. Assessment & Plan (11/10/2021 12:28 PM CDT): This is a chronic condition which is not at goal of less than 8%. Personally reviewed A1c-8.1%, not at goal less than 8%. Personally reviewed blood sugar 171. At goal 80-180 Medication- Continue ozempic 0.5mg weekly and glimeperide to 4mg twice daily. Monitor blood sugar 2x times a day. Encouraged annual eye exam. Monofilament exam- decreased sensation to feet, but still some sensation is present. sees Dr. Flores. Urine microalbumin/creatinine ratio - Latest Reference Range & Units 03/04/21 15:00 Microalbumin, POC mg/L 10 continue on lisinopril 10mg at goal <30 Personally reviewed labs: GFR- 75 Kidney function- abnormal B/P today- 138/64 , currently not taking blood pressure medication. States her blood pressure was going to low. Encouraged her to notify Dr. Cline and Dr. Braden, at Goal blood pressure is <140/90 and as close to 120/80 as possible. personally reviewed LDL- 59. At goal of less than 70 on crestor 10mg daily. No history of macrovascular disease - CVA, [place]. Assessment & Plan (08/25/2021 11:10 AM CDT): A1c at goal of < 8.0. cont current Rx meds, managed by endocrinology. Assessment & Plan (08/08/2021 2:04 PM CDT): This is a chronic condition which is at goal of less than 8%. Personally reviewed A1c-7.4%, at goal less than 8%. Personally reviewed blood sugar 113. At goal 80-180 Medication- Continue ozempic 0.5mg weekly and glimeperide to 4mg twice daily. Monitor blood sugar 2x times a day. Encouraged annual eye exam. Monofilament exam- decreased sensation to feet, but still some sensation is present. sees Dr. Flores. Urine microalbumin/creatinine ratio - 19 currently on lisinopril 10mg at goal <30 Personally reviewed labs: BUN- 16, creatinine- 0.74 GFR- 79 Kidney function- abnormal B/P today- 162/76 , currently not taking blood pressure medication. States her blood pressure was going to low. Encouraged her to notify Dr. Cline and Dr. Braden, at Goal blood pressure is <140/90 and as close to 120/80 as possible. personally reviewed LDL- 56. At goal of less than 70 on crestor 10mg daily. No history of macrovascular disease - CVA, [place]. Assessment & Plan (03/04/2021 3:24 PM COIN MACHINE MECHANIC): microalbumin less than 30. Managed by endocrinology. Continue current meds. Assessment & Plan (12/31/2020 3:44 PM CDT): This is a chronic condition which is not at goal of less than 8%. Personally reviewed A1c-8.5%, not at goal less than 8%. Personally reviewed blood sugar 222. At goal 80-180 Medication- Continue ozempic 0.5mg weekly and increase glimeperide to 4mg twice daily. Monitor blood sugar 2x times a day. Encouraged annual eye exam. last dilated eye exam was 05/19/2019. Appt made for 10/19/20 Monofilament exam- decreased sensation to feet, but still some sensation is present. sees Dr. Flores. Urine microalbumin/creatinine ratio - 19 currently on lisinopril 10mg at goal <30 Personally reviewed labs: (08/22/20) BUN- 21, creatinine- 0.90 GFR- 58 Kidney function-slightly abnormal B/P today- 130/64 , currently not taking blood pressure medication. States her blood pressure was going to low. Encouraged her to notify Dr. Cline and Dr. Braden, at Goal blood pressure is <140/90 and as close to 120/80 as possible. personally reviewed LDL- 65. At goal of less than 70 on crestor 10mg daily. No history of macrovascular disease - CVA, [place]. Assessment & Plan (09/26/2020 3:57 PM CDT): This is a chronic condition which is stable, controlled, at goal of less than 8%. Personally reviewed A1c- 7.8%, at goal less than 8%. Personally reviewed blood sugar 182. At goal 80-180 Medication- Continue ozempic 0.5mg weekly and glimeperide to 4mg daily. Monitor blood sugar 2x times a day. Encouraged annual eye exam. last dilated eye exam was 05/19/2019. Appt made for 10/19/20 Monofilament exam- decreased sensation to feet, but still some sensation is present. sees Dr. Flores. Urine microalbumin/creatinine ratio - 19 currently on lisinopril 10mg at goal <30 Personally reviewed labs: (08/22/20) BUN- 21, creatinine- 0.90 GFR- 58 Kidney function-slightly abnormal B/P today- 120/64 , currently on metoprolol, lisinopril 10 mg po daily, at Goal blood pressure is <140/90 and as close to 120/80 as possible. personally reviewed LDL- 51. At goal of less than 70 on crestor 10mg daily. No history of macrovascular disease - CVA, [place]. Assessment & Plan (08/22/2020 1:08 PM CDT): A1c at goal of less than 8.0. Continue current management. Managed by endocrinology. Assessment & Plan (06/11/2020 2:16 PM CDT): This is a chronic condition which is stable, controlled, at goal of less than 8%. Personally reviewed A1c- 7.2, at goal less than 8%. Personally reviewed blood sugar 131. At goal 80-180 Medication- Continue ozempic 0.5mg weekly and glimeperide to 4mg daily. Monitor blood sugar 2x times a day. Encouraged annual eye exam. last dilated eye exam was 05/19/2019 Monofilament exam- decreased sensation to feet, but still some sensation is present. Requesting referral to podiatry. Referral sent to Dr. Flores. Urine microalbumin/creatinine ratio - 19 currently on lisinopril 10mg at goal <30 Personally reviewed labs: BUN- 19 , creatinine- 1.0 GFR- 52 Kidney function- slightly abnormal B/P today- 124/64 , currently on metoprolol, lisinopril 10 mg po daily, at Goal blood pressure is <140/90 and as close to 120/80 as possible. personally reviewed LDL- 65. At goal of less than 70 on crestor 10mg daily. No history of macrovascular disease - CVA, [place]. Assessment & Plan (03/06/2020 4:55 PM COIN MACHINE MECHANIC): This is a chronic condition which is stable, controlled, at goal of less than 8%. Personally reviewed A1c- 7.6, at goal less than 8%. Feels her A1c should be less than 7%, explained the A1c can be between 7-8% as we age. Personally reviewed blood sugar 130. At goal 80-180 Medication- Continue ozempic 0.5mg weekly. Decrease glimeperide to 4mg daily. Monitor blood sugar 2x times a day. Encouraged annual eye exam. last dilated eye exam was 05/19/2019 Urine microalbumin/creatinine ratio - 19 currently on lisinopril 10mg at goal <30 Personally reviewed labs: BUN- 19 , creatinine- 1.0 GFR- 52 Kidney function- slightly abnormal B/P today- 110/58 , currently on metoprolol, lisinopril 10 mg po daily, at Goal blood pressure is <140/90 and as close to 120/80 as possible. No history of macrovascular disease - CVA, [place]. Assessment & Plan (02/05/2020 3:19 PM COIN MACHINE MECHANIC): Managed by endocrinology Assessment & Plan (12/19/2019 12:08 PM CDT): This is a chronic condition which is Improving and at goal for her age. Labs reviewed. A1c today-7.8 Medication- Continue Ozempic 0.5mg weekly, glimepiride 4mg daily Monitor blood sugar 2-3 times a day. dilated eye exam 11/2018, appt in the next few weeks. 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 Kidney function eGRF- 52 , BUN- 19, creatinine- 1.0 BP today- 130/62, currently on amlodipine 5mg daily, metoprolol 25 mg daily LDL - 53, currently on rosuvastatin history of macrovascular disease - CVA, MA. Assessment & Plan (09/18/2019 11:05 AM CDT): This is a chronic condition which is uncontrolled with hyperglycemia. Labs reviewed. A1c- 9.2, Slightly elevated from last A1c of 8.8 Medication- victoza 0.6mg daily, she reports having trouble, keeping up with this. She thinnks she would do better with a weekly injection. She is incontinent of urine, so she is not a good candidate for SGLT-2 Stop Victoza, Start Trulicity 0.75mg weekly, Continue Glimeriperide 4mg twice daily. Monitor blood sugar 2 times a day. Call office if blood sugars is dropping below 80. Call office if your blood sugar is greater than 250 for 3 days. Surveillance of Diabetes complications last dilated eye exam was done at [facility] by Dr. Jimenez loss of protective sensation to feet Urine microalbumin/creatinine ratio - Unable to void today currently amlodipine 5mg po daily. BP today- 124/72 , currently on amlodipine 5mg po daily, metoprolol 25mg po daily. * LDL - 53, currently on rosuvastatin 10 mg daily history of macrovascular disease - CVA, [place]. Assessment & Plan (08/07/2019 10:34 AM CDT): Condition is Worsening. Discussed blood sugars Eat healthy, include fresh fruits and vegetables daily. Try moving at least a total of 30 minutes/day. This does not have to be done at one time. Please take medications as prescribed. Continue on Victoza 1.2 mg daily and glimepiride 4 mg 2 times daily. Continue Check blood sugar 2 times per day and record. We will be requesting to see blood sugar at your next visit. Call office if blood sugars less than 80 or greater than 250, for 3 days. You may need a medication adjustment. Assessment & Plan (07/12/2019 9:50 AM CDT): Managed by endocrinology. Assessment & Plan (03/28/2019 11:30 AM COIN MACHINE MECHANIC): Managed by endocrinology. Assessment & Plan (11/22/2018 10:31 AM CDT): Elevated A1c, encouraged tighter control of BS. Managed by Endocrinology. On insulin. Hypercalcemia 07/17/2014 Chronic uremia 07/06/2013 Overview (06/26/2016): Chronic renal failure Hyperlipidemia associated with type 2 diabetes nina richards 05/31/2013 Overview (11/22/2018): Assessment & Plan (01/31/2024 5:39 PM COIN MACHINE MECHANIC): This is a chronic condition which is at goal . Goal is LDL less than 70 Continue rosuvastatin Encouraged to eat healthy, include fresh fruits and vegetables daily and avoid eating fried foods more than once per week. Assessment & Plan (09/20/2023 2:36 PM CDT): This is a chronic condition which is at goal . Goal is LDL less than 70 Continue rosuvastatin Encouraged to eat healthy, include fresh fruits and vegetables daily and avoid eating fried foods more than once per week. Encouraged to take medications as prescribed. Assessment & Plan (08/31/2023 6:50 PM CDT): Continue to limit fats in diet and take rosuvastatin 10 mg q.h.s. Assessment & Plan (07/30/2023 4:15 PM CDT): Continue to limit fats in diet and take rosuvastatin 10 mg at HS. Lipid panel ordered Assessment & Plan (03/09/2023 2:50 PM COIN MACHINE MECHANIC): This is a chronic condition which is at goal of LDL less than 70 Continue rosuvastatin. Encouraged to eat healthy, include fresh fruits and vegetables daily and avoid eating fried foods more than once per week. Encouraged to take medications as prescribed. Assessment & Plan (03/03/2023 9:12 PM COIN MACHINE MECHANIC): LDL at goal of less than 100, continue current prescription medications, Crestor. Assessment & Plan (11/09/2022 11:37 AM CDT): This is a chronic condition which is not at goal of LDL less than 70 Continue rosuvastatin Encouraged to eat healthy, include fresh fruits and vegetables daily and avoid eating fried foods more than once per week. Encouraged to take medications as prescribed. Assessment & Plan (09/03/2022 3:56 PM CDT): LDL at goal of less than 100, continue current prescription medications, rosuvastatin. Assessment & Plan (03/23/2022 10:09 AM COIN MACHINE MECHANIC): LDL at goal of less than 100, continue current prescription medications. Assessment & Plan (11/10/2021 12:29 PM CDT): This is a chronic condition which is at goal. Personally reviewed lipid panel. LDL-59. At goal of less than 70 on crestor 10mg daily. Encouraged to eat healthy, include fresh fruits and vegetables daily and avoid eating fried foods more than once per week. Encouraged to take medications as prescribed. Assessment & Plan (08/25/2021 11:11 AM CDT): LDL at goal < 100, cont current Rx meds. Assessment & Plan (08/08/2021 2:09 PM CDT): This is a chronic condition which is at goal. Personally reviewed lipid panel. LDL-56. At goal of less than 70 on crestor 10mg daily. Encouraged to eat healthy, include fresh fruits and vegetables daily and avoid eating fried foods more than once per week. Encouraged to take medications as prescribed. Assessment & Plan (03/04/2021 3:23 PM COIN MACHINE MECHANIC): LDL at goal of less than 70. Continue current Prescription medications. Assessment & Plan (01/31/2021 12:34 PM COIN MACHINE MECHANIC): LDL at goal of < 70. Cont current prescription meds. Assessment & Plan (12/31/2020 3:43 PM CDT): This is a chronic condition which is at goal. Personally reviewed lipid panel. LDL-65. At goal of less than 70 on crestor 10mg daily. Encouraged to eat healthy, include fresh fruits and vegetables daily and avoid eating fried foods more than once per week. Encouraged to take medications as prescribed. Assessment & Plan (09/26/2020 3:59 PM CDT): This is a chronic condition which is at goal. Personally reviewed lipid panel. LDL- 51. At goal of less than 70 on crestor 10mg daily. Encouraged to eat healthy, include fresh fruits and vegetables daily and avoid eating fried foods more than once per week. Encouraged to take medications as prescribed. Assessment & Plan (08/22/2020 1:08 PM CDT): Low-cholesterol diet recommended. Continue current management. LDL at goal of less than 70. Assessment & Plan (06/11/2020 7:07 PM CDT): This is a chronic condition which is stable, controlled,at goal. At goal of less than 70 on crestor 10mg daily. Personally reviewed lipid panel. LDL-65 Encouraged to eat healthy, include fresh fruits and vegetables daily and avoid eating fried foods more than once per week. Please take medications as prescribed. Assessment & Plan (03/06/2020 4:57 PM COIN MACHINE MECHANIC): This is a chronic condition which is stable, controlled,at goal. Goal is less than 70. Personally reviewed lipid panel. LDL-65 Encouraged to eat healthy, include fresh fruits and vegetables daily and avoid eating fried foods more than once per week. Please take medications as prescribed. Continue on crestor 10mg daily. Assessment & Plan (02/05/2020 3:19 PM COIN MACHINE MECHANIC): Stable. Cont. Current meds. Assessment & Plan (01/03/2020 11:13 AM CDT): Stable. Lipid abnormalities are stable, reviewed previous lipid levels in [facility]. Pharmacotherapy as ordered. Order for lipid panel was given today to be obtained. Pt voiced understanding of lab drawn and continuation of current medication regimen. Assessment & Plan (09/18/2019 11:07 AM CDT): This is a chronic condition which is stable. Reviewed labs. Encouraged to eat healthy, include fresh fruits and vegetables daily and avoid eating fried foods more than once per week. Try moving at least a total of 30 minutes/day. This does not have to be done at one time. Please take medications as prescribed. Continue on rosuvastatin 10mg po daily Assessment & Plan (07/12/2019 9:49 AM CDT): Stable. Cont. Current meds. Assessment & Plan (03/28/2019 11:29 AM COIN MACHINE MECHANIC): Clinically improved, continue current meds. Assessment & Plan (11/22/2018 10:29 AM CDT): Clinically improved, continue current meds. Primary hypertension 08/10/2012 Overview (11/22/2018): Assessment & Plan (01/31/2024 5:39 PM COIN MACHINE MECHANIC): This is a chronic condition which is not at goal on arrival, at goal after rest. Goal is less than 140/90 Continue amlodipine, HCTZ Encouraged to monitor weight and B/P at home. Assessment & Plan (11/12/2023 6:42 PM CDT): Blood pressure stable at 132/70. Continue present medications Assessment & Plan (08/31/2023 6:52 PM CDT): Stable BP 130/72. Continue amlodipine 5 mg daily, hydrochlorothiazide 12.5 mg daily and limit salt in diet Assessment & Plan (07/30/2023 4:18 PM CDT): At goal. BP 120/62. Continue to limit salt in diet and take hydrochlorothiazide 12.5 mg daily Assessment & Plan (03/03/2023 9:12 PM COIN MACHINE MECHANIC): Blood pressure at goal less than 140/90, continue current prescription medications, amlodipine. Assessment & Plan (09/03/2022 3:53 PM CDT): Blood pressure at goal less than 140/90, continue current prescription medications, losartan. Assessment & Plan (03/23/2022 10:09 AM COIN MACHINE MECHANIC): BP near goal of < 140/90. Encouraged low sodium diet. Continue current Rx meds. Monitor home bps and send in bp readings in one week. Assessment & Plan (02/20/2022 12:26 PM COIN MACHINE MECHANIC): This is a chronic condition which is not at goal of less than 140/90 Personally reviewed labs. Continue lisinopril. Encouraged to void caffeine and excessive alcohol consumption as this will elevate B/P Encouraged to monitor weight and B/P at home Explained correct way to take blood pressure. - After 5 minutes of sitting calmly with arm supported. Encouraged to take medications as prescribed. Assessment & Plan (08/25/2021 11:09 AM CDT): Clinically improved, continue current prescription medications. Assessment & Plan (08/08/2021 2:06 PM CDT): B/p-162/76 States she has stopped taking her blood pressure medicine because it was causing her blood pressure to go too low. Encouraged her to notify Dr. Cline and Dr. Braden that she is not no longer taking her medication Assessment & Plan (03/04/2021 3:23 PM COIN MACHINE MECHANIC): Clinically improved, continue current prescription medications. Assessment & Plan (01/31/2021 12:33 PM COIN MACHINE MECHANIC): Elevated, patient did not take bp meds today. Encouraged compliance with current bp meds. BP goal is < 140/90. Assessment & Plan (12/31/2020 9:44 AM CDT): States she has stopped taking her blood pressure medicine because it was causing her blood pressure to go too low. Encouraged her to notify Dr. Cline and Dr. Braden that she is not no longer taking her medication Assessment & Plan (09/26/2020 3:58 PM CDT): This is a chronic condition which is at goal Goal is <140/90. B/P today- 120/64 , currently on metoprolol, lisinopril 10 mg po daily. Personally reviewed labs. Avoid caffeine, caffeine will raise blood pressure and excessive alcohol consumption. Monitor your weight and B/P. Encouraged to take medications as prescribed. Assessment & Plan (08/22/2020 1:07 PM CDT): Blood pressure lower today will decrease lisinopril 10 mg down to 5 mg daily. Continue metoprolol. Assessment & Plan (06/11/2020 2:17 PM CDT): This is a chronic condition and is stable, controlled at Goal is <140/90 Personally reviewed labs. Avoid caffeine, caffeine will raise blood pressure and excessive alcohol consumption. Monitor your weight and B/P. Please take medications as prescribed. B/P today- 124/64 , currently on metoprolol, lisinopril 10 mg po daily, at Goal Assessment & Plan (03/06/2020 4:56 PM COIN MACHINE MECHANIC): This is a chronic condition and is stable, controlled at Goal is <140/90 Personally reviewed labs. Avoid caffeine, caffeine will raise blood pressure and excessive alcohol consumption. Monitor your weight and B/P. Please take medications as prescribed. B/P today- 110/58 , currently on metoprolol, lisinopril 10 mg po daily, at Goal Assessment & Plan (02/05/2020 3:18 PM COIN MACHINE MECHANIC): Stable. Cont. Current meds. Assessment & Plan (01/03/2020 11:15 AM CDT): Patient believes amlodipine is causing drainage down her throat. I told her that this is unlikely however patient insisted that this is the cause. We will discontinue the amlodipine as she does not like taking it. Will start lisinopril 10 mg once daily. I asked her to check her blood pressure at home and will have her follow-up again in 1 months for recheck Assessment & Plan (09/18/2019 11:07 AM CDT): This is a chronic condition and is stable. Reviewed labs. BP today 124/72 Encouraged to eat healthy, include fresh fruits and vegetables daily. Avoid caffeine, caffeine will raise blood pressure and excessive alcohol consumption. Monitor your weight and B/P. Try moving at least a total of 30 minutes/day. This does not have to be done at one time. Please take medications as prescribed. Continue on amlodipine 5mg po daily, metoprolol 25mg po daily. Assessment & Plan (07/12/2019 9:49 AM CDT): Waxing and waning, controlled now. Cont current meds. Go to nearest ER if elevated bps occur again, definitely go to the nearest ER for any visual disturbances with elevated bps. Assessment & Plan (03/28/2019 11:28 AM COIN MACHINE MECHANIC): Stable. Cont. Current meds. Assessment & Plan (11/22/2018 10:29 AM CDT): Clinically improved, continue current meds. Amlodipine 5 mg qd, metoprolol xl 25 mg qd; D/C HCTZ d/t dry mouth and urinary incontinence. Assessment & Plan (08/09/2017 2:41 PM CDT): Hypertension is improving with treatment. Continue current treatment regimen. Blood pressure will be reassessed at the next regular appointment.Pt. On Metoprolol XL 50 mg, Cozaar 25 mg Lifestyle changes can help you control and prevent high blood pressure, even if you're taking blood pressure medication. Here's what you can do: Eat healthy foods. Eat a healthy diet. Try the Dietary Approaches to Stop Hypertension (DASH) diet, which emphasizes fruits, vegetables, whole grains, poultry, fish and low-fat dairy foods. Get plenty of potassium, which can help prevent and control high blood pressure. Eat less saturated fat and trans fat. Decrease the salt in your diet. A lower sodium level -- 1,500 milligrams (mg) a day -- is appropriate for people 51 years of age or older, and individuals of any age who are black or who have hypertension, diabetes or chronic kidney disease. Maintain a healthy weight. Keeping a healthy weight, or losing weight if you're overweight or obese, can help you control your high blood pressure and lower your risk of related health problems. If you're overweight, losing even 5 pounds (2.3 kilograms) can lower your blood pressure. Increase physical activity. Regular physical activity can help lower your blood pressure, manage stress, reduce your risk of several health problems and keep your weight under control. Limit alcohol. Even if you're healthy, alcohol can raise your blood pressure. If you choose to drink alcohol, do so in moderation. For healthy adults, that means up to one drink a day for women of all ages and men older than age 65, and up to two drinks a day for men age 65 and younger. One drink equals 12 ounces of beer, 5 ounces of wine or 1.5 ounces of 80-proof liquor. Don't smoke. Tobacco injures blood vessel nye and speeds up the process of hardening of the arteries. If you smoke, ask your doctor to help you quit. Manage stress. Reduce stress as much as possible. Practice healthy coping techniques, such as muscle relaxation, deep breathing or meditation. Getting regular physical activity and plenty of sleep can help, too. Notify the office for blood pressure greater than 130/80 Resolved Problems Problem Noted Date Diagnosed Date Resolved Date Otalgia, right 08/25/2021 03/20/2022 Assessment & Plan (08/25/2021 11:16 AM CDT): Referred to ENT for further eval/mgmt. Acute cystitis without hematuria 08/23/2020 03/20/2022 Change in bowel habits 10/26/201811/22 Overview (10/26/2018): Added automatically from request for surgery [id number] Pain 06/02/2018 11/22/2018 Skin ulcer 01/30/2018 11/22/2018 Skin ulcer 01/30/2018 03/01/2018 Decreased ROM of left shoulder 11/25/2017 11/22/2018 Overview (11/25/2017): 90 degree abduction Lesion of skin of breast 11/25/201705/2018 Overview (11/25/2017): Left breast at 3:00 Left upper arm pain 10/28/2017 03/01/20 18 Assessment & Plan (11/01/2017 7:17 AM CDT): Will start with x-ray left humerus. Could be benign lipoma, but I am not sure why it is causing her pain. Differential includes lymph node, mass; Consider ultrasound soft tissue. Will have her f/u with Dr. Ferris to get her opinoin Acute mucoid otitis media of left ear 08/09/2017 03/01/2018 Assessment & Plan (08/10/2017 1:26 PM CDT): Left ear with pain 12/29. Pus and drainage in the canal. Unable to see if TM is perforated. Post Auricular tenderness. Made appointment for pt. To see ENT tomorrow. Amoxil And Floxin ear drops ordered Pt has appointment with PCP on Wednesday also Bradycardia 08/09/2017 11/22/2018 Assessment & Plan (08/10/2017 1:27 PM CDT): Heart rate today 46-55. EKG ordered. Pt. Complains of fatigue, leg swelling and heaviness. EKG today showed: Sinus bradycardia with sinus arrhythmia First Degree AV blook intr-atrial conduction delay on horizontal axis. HR 50, 46 The First Degree heart block is not new. Compared to old EKG's 2004-NORMAL SINUS RHYTHM WITH 1ST DEGREE A?V BLOCK POSSIBLE ANTERIOR INFARCT , AGE UNDETERMINED\ Last ECHO 2017-IMPRESSION: 1. AORTIC VALVE SCLEROSIS, MILD. 2. CONCENTRIC LVH, MILD. 3. NORMAL GLOBAL LV FUNCTION WITH ESTIMATED EJECTION FRACTION OF 60-65%. 4. MITRAL REGURGITATION, TRIVIAL. 5. TRICUSPID REGURGITATION, TRIVIAL. 6. PROBABLE DIASTOLIC DYSFUNCTION. Will decrease Metoprolol XL to 25 mg. Pt. Will skip tonights dose Pt. To get another BP machine. Pt. To f/u with Dr. Nayak on Wednesday and make appointment with Purchasing Engineer Thumb pain 06/04/2015 03/01/2018 Overview (06/26/2016): Pain of left thumb Acute sinusitis 04/23/2015 03/01/2018 Overview (06/26/2016): Acute sinusitis, recurrence not specified, unspecified location Screening status 04/23/2015 03/01/2018 Overview (06/26/2016): Screening Pain of foot 03/04/2015 03/01/2018 Overview (06/26/2016): Right foot pain Serum creatinine raised 07/17/2014/0 09/2019 Carcinoma of breast 07/17/2014 09/16/19 18 History of malignant neoplasm of breast 07/11/2013 09/15/2017 Postoperative state 05/31/2013 03/01/20 18 Overview (06/24/2016): S/P radioactive iodine thyroid ablation Malignant neoplasm of breast 05/31/2013 09/15/2017 Overview (06/24/2016): 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 (06/25/2016): Graves disease Encounters Date Type Department Care Team Description 07/25/2024 Orders Only [facility] Primary Care at [address] [address] Nata Teran NP Decreased hearing of both ears (Primary Dx) 07/24/2024 Telephone [facility] Primary Care at [address] [address] Nata Teran NP Referral Request 06/19/2024 Results Follow-Up [facility] Medical [facility] Primary Care at [address] [address] Nata Teran NP TSH 06/16/2024 3:10 PM CDT - 06/16/2024 11:59 PM CDT Hospital Encounter [address] [address] Postablative hypothyroidism Discharge Disposition: Discharge to home or self care 06/16/2024 3:00 PM CDT Lab [facility] Outpatient Lab at [address] [place] [id number] Postsurgical hypothyroidism (Primary Dx) 06/12/2024 Diabetic Education [address] [address] Shahida Mena CDE 05/29/2024 Diabetic Education [address] [address] Shahida Mena CDE from Last 3 Months Immunizations Immunization Administration Dates Next Due Influenza, Trivalent, IM (MDV) 01/04/2014 Influenza, Unspecified 03/03/2024(Deferr ed: Patient Refused),05/04/2023(Deferred: Patient Refused),12/28/2022(Deferred: Patient Refused),05/04/2022(Deferred: Patient Refused) Pfizer SARS-CoV-2 Monovalent Vaccination (12+ Yrs) PURPLE 07/09/2020,06/17/2020 Pneumococcal Conjugate PCV 13 11/13/2015 Pneumococcal Polysaccharide PPV23 03/31/2017 ZOSTER LIVE 06/04/2015 Surgical History Surgery Date Site/Laterality Comments CATARACT EXTRACTION Cataract extraction MASTECTOMY Mastectomy CHOLECYSTECTOMY 03/22/2011 - 03/21/2012 gallbladder surgery HYSTERECTOMY 03/22/1997 - 03/21/1998 Hysterectomy SKIN BIOPSY ABDOMINAL SURGERY cholecystectomy EYE SURGERY BREAST SURGERY COLONOSCOPY ROOT CANAL 02/28/2021 Medical History Medical History Date Comments Hypertension Hypertension Gastroesophageal reflux disease GERD Hypertension 1993 Hypertension Diabetes mellitus (HCC) 1993 Diabetes Hyperlipidemia 1995 Hyperlipidemia Status post chemotherapy 2002 breast cancer Status post radiation therapy 2002 br east cancer PONV (postoperative nausea and vomiting) Hypothyroidism Malignant neoplasm of female breast (HCC) Cancer, breast Constipation Urinary incontinence Family History Medical History Relation Name Comments Diabetes Brother age 76 Pneumonia Father pneumonia; Caus e of : pneumonia Breast cancer Father's Sister abdominal cancer Maternal Grandfather Breast cancer Maternal cousin second Diabetes Mother Hypertension Mother Hypertension; Colon cancer Mother's Sister Colon cancer Sister Diabetes Sister MVA Son 2 killed in car a ccident Relation Name Status Comments Brother Daughter 1 Alive Daughter 2 Alive Father Father's Sister Maternal Grandfather Maternal cousin second Mother Mother's Sister Sister Son 1 Alive Son 2 Social History Tobacco Use Types Packs/Day Years Used Date Smoking Tobacco: Never Smokeless Tobacco: Never Tobacco Cessation:Counseling Given: Not Answered Alcohol Use Standard Drinks/Week Comments No 0 (1 standard drink = 0.6 oz pur e alcohol) PHQ-2 Answer Date Recorded PHQ-2 Total Score (If total score is 3 or more points, staff should administer the PHQ-9) 0 08/31/2023 Comments No Sex and Gender Information Value Date Recorded Sex Assigned at Not on file Legal Sex Female 3:29 AM COIN MACHINE MECHANIC Gender Identity Not on file Sexual Orientation Not on file Obstetrics History Comments 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 Hysterectomy at age 60 in 1997 and placed on Premarin from 1997 until 2002. Evista 2002 until time of breast cancer diagnosis. Last Filed Vital Signs Vital Sign Reading Time Taken Comments Blood Pressure 128/68 05/04/2024 2:27 PM COIN MACHINE MECHANIC Pulse 80 03/06/2024 12:54 PM COIN MACHINE MECHANIC Temperature 36.5 C (97.7 F) 03/06/2024 12:54 PM COIN MACHINE MECHANIC Respiratory Rate 14 05/04/2023 3:15 PM COIN MACHINE MECHANIC Oxygen Saturation 95% 03/06/2024 12:54 PM COIN MACHINE MECHANIC Inhaled Oxygen Concentration - - Weight 64.1 kg (141 lb 6.4 oz) 05/04/2024 2:27 P M COIN MACHINE MECHANIC Height 157.5 cm (5' 2) 05/04/2024 2:27 PM COIN MACHINE MECHANIC Body Mass Index 25.86 05/04/2024 2:27 PM COIN MACHINE MECHANIC Plan of Treatment Health Maintenance Due Date Last Done Comments DTaP/Tdap/Td Vaccine (1 - Tdap) 06/30/1946 Zoster Vaccine (2 of 3) 07/30/2015 06/04/2015 Covid-19 Vaccine (3 - 2023-2 5 season) 2023 07/09/2020, 06/17/2020 Dilated Eye Exam 03/23/2024 03/23/2023, 04/2023, 11/06/2022, Additional history exists Albumin Creatinine Ratio, Urine 07/29/2024 07/30/2023, 06/23/2022, 02/05/2020 Depression Screening 08/30/2024 08/31/2023, 05/04/2023, 04/08/2023, Additional history exists Fall Risk Assessment 08/30/2024 08/31/2023, 05/04/2023, 04/08/2023, Additional history exists Well Visit 65+ 08/30/2024 08/31/2023, 060 08/2022, 08/25/2021, Additional history exists Hemoglobin A1C 11/01/2024 05/04/2024, 01/20, 07/30/2023, Additional history exists Influenza Vaccine (Season Ended) 2024 01/05/20 14 Foot Exam 01/30/2025 01/31/2024, 070 03/2023, 03/09/2023, Additional history exists Lipid Panel 03/06/2025 03/06/2024, 07/20, 02/25/2023, Additional history exists eGFR 03/06/2025 03/06/2024, 07/20, 05/29/2023, Additional history exists Pneumococcal vaccine 65+ Completed 03/31/2017, 10/21 Osteoporosis Screening-Bone Density Scan Discontinued 08/10/2023, 09/04/2020, 09/28/2016, Additional history exists Hepatitis B Screening Completed 03/06/2024 Procedures Procedure Name Priority Date/Time Associated Diagnosis Comments TSH Routine 06/16/2024 3:10 PM CDT Postablative hypothyroidism POCT HEMOGLOBIN A1C Routine 05/04/2024 2:31 PM COIN MACHINE MECHANIC Type 2 diabetes mellitus with hyperglycemia, without long-term current use of insulin (HCC) EGFR Routine 03/06/2024 1:57 PM COIN MACHINE MECHANIC Primary hypertension LIPID PANEL Routine 03/06/2024 1:57 PM COIN MACHINE MECHANIC Hyperlipidemia associated with type 2 diabetes mellitus (HCC) DEXA AXIAL SKELETON BONE DENSITY 1 OR MORE SITES Schedule Routine, Read Routine (OP Routine) 08/10/2023 10:32 AM CDT Screening for osteoporosis Post-menopause ALBUMIN CREATININE RATIO, URINE Routine 07/30/2023 2:05 PM CDT Type 2 diabetes mellitus without complication, without long-term current use of insulin (HCC) DIABETIC EYE EXAM Routine 03/23/2023 HM DIABETES FOOT EXAM Routine 05/17/2017 from Last 3 Months or Most Recently Relevant to Health Maintenance Results * TSH (06/16/2024 3:10 PM CDT) Thyroid Stimulating Hormone 0.56 0.30 - 4.20 mcIUnit/mL Blood 06/16/2024 3:10 PM CDT 06/16/2024 8:43 PM CDT us Nata Teran NP LAB BLOOD ORDERABLES Final Re sult [facility] [address] [address] Department [place] [address] * POCT hemoglobin A1c (05/04/2024 2:31 PM COIN MACHINE MECHANIC) Pathologist [facility] Hemoglobin A1C, POC 7.6 4.0 - 5.6 % Blood 05/04/2024 2:31 PM COIN MACHINE MECHANIC us Thelma Martinez NP POINT OF CARE TEST ORDERABLES F inal Result * (ABNORMAL) eGFR (03/06/2024 1:57 PM COIN MACHINE MECHANIC) eGFR 58(L) >=60 mL/min/1. 73 m2 Comment: Interpretive Data Reference Interval Normal >/= 90 mL/min/1.73m2 Mildly decreased* 60 - 89 mL/min/1.73m2 Mildly to moderately decreased 45 - 59 mL/min/1.73m2 Moderately to severely decreased 30 - 44 mL/min/1.73m2 Severely decreased 15 - 29 mL/min/1.73m2 Kidney Failure < 15 mL/min/1.73m2 *Relative to young adult level Estimated glomerular filtration rate is determined by the 2020 CKD-EPI equation recommended by the National Kidney Foundation (A Unifying Approach to GFR Estimation: Recommendations of the NKF-ASK Task Force on Reassessing the Inclusion of Race in Diagnosing Kidney Disease, JASN 2020). The CKD-EPI equation should not be used for patients with unstable renal function and has not been validated in children and those over 70. Current interpretive data was last reviewed 2021. Blood 03/06/2024 1:57 PM COIN MACHINE MECHANIC 03/06/2024 9:00 PM COIN MACHINE MECHANIC us Nata Teran NP LAB BLOOD ORDERABLES Final Re sult [facility] [address] [address] Department [place] [address] * (ABNORMAL) Lipid panel (03/06/2024 1:57 PM COIN MACHINE MECHANIC) Cholesterol 217(H) 30 - 199 mg/dL Comment: Interpretive Data Ages < or = 19 years Acceptable: <170 mg/dL Borderline high: 170-199 mg/dL High: >or= 200 mg/dL Ages > or = 20 years Desirable: <200 mg/dL Borderline high: 200-239 mg/dL High: >or= 240 mg/dL Literature References: 1. Expert Panel on Integrated Guidelines for Cardiovascular Health and Risk Reduction in Children and Adolescents. Pediatrics 2011;128:S213 2. NCEP Expert Panel. Circulation 2004;110:227 Current Interpretive Data was last revised on 2017. Triglycerides 166(H) <=149 mg/dL [facility] Comment: Interpretive Data Ages < or = 9 years Acceptable: <75 mg/dL Borderline high: 75-99 mg/dL High: >or= 100 mg/dL Ages 10 to 20 years Acceptable: <90 mg/dL Borderline high: 90-129 mg/dL High: >or= 130 mg/dL Ages > or = 20 years Desirable: <150 mg/dL Borderline high: 150-199 mg/dL High: 200-499 mg/dL Very high: >or= 499 mg/dL Literature References: 1. Expert Panel on Integrated Guidelines for Cardiovascular Health and Risk Reduction in Children and Adolescents. Pediatrics 2011;128:S213 2. NCEP Expert Panel. Circulation 2004;110:227 Current Interpretive Data was last revised on 2017. HDL 55 >=40 mg/dL [facility] Comment: Interpretive Data Ages < or = 19 years Acceptable: >45 mg/dL Borderline low: 40-45 mg/dL Low: <40 mg/dL Ages > or = 20 years Desirable: >or= 60 mg/dL Low: <40 mg/dL Literature References: 1. Expert Panel on Integrated Guidelines for Cardiovascular Health and Risk Reduction in Children and Adolescents. Pediatrics 2011;128:S213 2. NCEP Expert Panel. Circulation 2004;110:227 Current Interpretive Data was last revised on 2017. LDL, calculated 133(H) <=129 mg/dL [facility] Comment: Interpretive Data Ages < or = 19 years Acceptable: <110 mg/dL Borderline high: 110-129 mg/dL High: >or= 130 mg/dL Ages > or = 20 years Optimal: <100 mg/dL Near optimal: 100-129 mg/dL Borderline high: 130-159 mg/dL High: >160 mg/dL Calculated using the Greg LDL-C estimating equation. This equation was implemented on 2023. Prior to this date LDL-C was estimated using the Friedewald equation. Literature References: 1. Expert Panel on Integrated Guidelines for Cardiovascular Health and Risk Reduction in Children and Adolescents. Pediatrics 2011;128:S213 2. NCEP Expert Panel. Circulation 2004;110:227 3. Greg Brandon et al. JANICE Cardiol. 2019July 20;5(5):540-548. doi: 10.1001/jamacardio.2020.0013 Current Interpretive Data was last revised on 2023. Non-HDL Cholesterol 162 mg/dL [facility] Comment: Interpretive Data Ages < or = 19 years Acceptable: <120 mg/dL Borderline high: 120-144 mg/dL High: >145 mg/dL Ages > or = 20 years When triglycerides are >200 mg/dL, Non-HDL cholesterol is a secondary target of therapy with treatment goals that are 30 mg/dL greater than the LDL cholesterol target. Literature References: 1. Expert Panel on Integrated Guidelines for Cardiovascular Health and Risk Reduction in Children and Adolescents. Pediatrics 2011;128:S213 2. NCEP Expert Panel. Circulation 2004;110:227 Current Interpretive Data was last revised on 2017. Chol/HDL ratio 4 [facility] Blood 03/06/2024 1:57 PM COIN MACHINE MECHANIC 03/06/2024 8:49 PM COIN MACHINE MECHANIC us Nata Teran NP LAB BLOOD ORDERABLES Final Re sult [facility] [address] [address] Department [place] [address] * Dexa Axial Skeleton Bone Density 1 or 2 Site (08/10/2023 10:32 AM CDT) Anatomical Region Laterality Modality Body N/A Other 08/10/2023 6:56 PM CDT Narrative 08/10/2023 6:57 PM CDT EXAM DESCRIPTION: DEXA AXIAL SKELETON BONE DENSITY 1 OR MORE SITES REASON FOR STUDY: 88 y/o year old F with given history of: screening for osteoporosis Osteoporosis screening Post menopausal Calender Machine Operator/Model: [id number] SL (S/N [id number]) CLINICAL INFORMATION: Current height: 62 inches Maximum height: 62 inches Weight: 142 pounds Risk factors: Postmenopausal, adult fracture COMPARISON: 09/04/2020 Dissimilar scan types or analysis methods precludes assessment for calculating a significant change. FINDINGS: AP LUMBAR SPINE L1-L4: Total BMD is 1.149 g/cm2 T-score is 0.9 LEFT HIP: Total BMD is 0.713 g/cm2 T-score is -1.9 Femoral neck BMD is 0.579 g/cm2 T-score is -2.4 FRAX: 10 year risk for a major osteoporotic fracture is 22 %, 10 year risk for a hip fracture is 7.2 % IMPRESSION: Low Bone Mass. REFERENCE: Bone mineral density: T-Score: Normal (T-score above or = -1.0) Low bone mass (T-score between -1.0 and -2.5) replaces the previously used term osteopenia Osteoporosis (T-score = or below -2.5) Z-Score: Within the expected range for age (Z-score above -2.0) Below the expected range for age (Z-score is -2.0 or below) Please see below follow up recommendations. Medical evaluation for secondary causes of low bone mineral density may be appropriate. FRAX is a World Health Organization validated fracture risk assessment tool that calculates a person's 10 year probability of a major osteoporosis related fracture and hip fracture. According to the National Osteoporosis Foundation guidelines, postmenopausal women and men age 50 or older with low bone mass and a 10 year probability of a major osteoporosis related fracture = or greater than 20% or a 10 year probability of a hip fracture = or greater than 3% should be considered for pharmacological treatment for the prevention of osteoporosis. For further information, including treatment recommendations, please refer to the 2019 ISCD Official Positions (http://www.iscd.org) and the NOF's Clinician's Guide to Prevention and Treatment of Osteoporosis (http://www.nof.org/professionals/clinical-guidelines) THIS IS AN ELECTRONICALLY VERIFIED FINAL REPORT 08/10/2023 6:57 PM - Electronically signed by Jose Francisco Coburn M.D. MF: [email or web address] Report ID: [id number] Reading Location: [place] [address] Procedure Note Jose Francisco Coburn MD - 08/10/2023 EXAM DESCRIPTION: DEXA AXIAL SKELETON BONE DENSITY 1 OR MORE SITES REASON FOR STUDY: 88 y/o year old F with given history of: screeningfor osteoporosis Osteoporosis screening Post menopausal Calender Machine Operator/Model: QRGL (S/N [id number]) CLINICAL INFORMATION: Current height: 62 inches Maximum height: 62 inches Weight: 142 pounds Risk factors: Postmenopausal, adult fracture COMPARISON: 09/04/2020 Dissimilar scan types or analysis methods precludes assessment for calculating a significant change. FINDINGS: AP LUMBAR SPINE L1-L4: Total BMD is 1.149 g/cm2 T-score is 0.9 LEFT HIP: Total BMD is 0.713 g/cm2 T-score is -1.9 Femoral neck BMD is 0.579 g/cm2 T-score is -2.4 FRAX: 10 year risk for a major osteoporotic fracture is 22 %, 10 year risk for ahip fracture is 7.2 % IMPRESSION: Low Bone Mass. REFERENCE: Bone mineral density: T-Score: Normal (T-score above or = -1.0) Low bone mass (T-score between -1.0 and -2.5) replaces thepreviously used term osteopenia Osteoporosis (T-score = or below -2.5) Z-Score: Within the expected range for age (Z-score above -2.0) Below the expected range for age (Z-score is -2.0 or below) Please see below follow up recommendations. Medical evaluation forsecondary causes of low bone mineral density may be appropriate. FRAX is a World Health Organization validated fracture risk assessmenttool that calculates a person's 10 year probability of a major osteoporosisrelated fracture and hip fracture. According to the National OsteoporosisFoundation guidelines, postmenopausal women and men age 50 or older with low bonemass and a 10 year probability of a major osteoporosis related fracture = or greater than 20% or a 10 year probability of a hip fracture = or greaterthan 3% should be considered for pharmacological treatment for the preventionof osteoporosis. For further information, including treatment recommendations, please referto the 2019 ISCD Official Positions (http://www.iscd.org) and the NOF's Clinician's Guide to Prevention and Treatment of Osteoporosis (http://www.nof.org/professionals/clinical-guidelines) THIS IS AN ELECTRONICALLY VERIFIED FINAL REPORT 08/10/2023 6:57 PM - Electronically signed by Jose Francisco Coburn M.D. MF: [email or web address] Report ID: [id number] Reading Location: [place] [address] Nata Teran AIR DEFENCE OFFICER IMG DXA PROCEDURES Final Resu lt * Albumin Creatinine Ratio, Urine (07/30/2023 2:05 PM CDT) Albumin Ur 89.2 mg/L Comment: Interpretive Data No reference range established. Current interpretive data was last revised 2018. Creatinine Ur 326.1 mg/dL [facility] Comment: Interpretive Data No reference range established. Current interpretive data was last revised 2018. Albumin Creatinine Ratio, Ur 27 1 - 29 mg/g [facility] Urine 07/30/2023 2:05 PM CDT 07/30/2023 8:51 PM CDT us Nata Teran AIR DEFENCE OFFICER LAB URINE ORDERABLES Final Re sult [facility] [address] [address] Department [place] [address] * Diabetic Eye Exam (03/23/2023) us Generic External Data Provider HEALTH MAINTENANC E Final Result * DIABETES FOOT EXAM (05/17/2017) Diabetic Foot Exam Unknown Historical Provider MD HEALTH MAINTENANCE Final Result from Last 3 Months or Most Recently Relevant to Health Maintenance [place] [address] [facility] MEDICARE HMO IDPA HUMAN MEDICARE HMO Advance Directives For more information, please contact: [phone] * Full Code (Latest Code Status on File) Date Activated Date Inactivated Comments 11/10/2018 7:54 AM 11/10/2018 1:44 PM Care Teams Senior Core Java Developer Relationship Specialty Start Date End Date Nata Teran NP [address] [facility] [address] [place] [address] PCP - General Family Medicine 07/30/23 Samaria Braden MD Consulting Physician Cardiology 11/22/18 Melinda Damian NP Nurse Practitioner Medical Oncology 11/22/18 Thelma Martinez NP Nurse Practitioner Endocrinology Diabetes & Metabolism 01/22/20 Lexie Vaz MD Consulting Physician Nephrology 08/25/21 [place] [address] [facility] [place] [address] [place] [address] Optometry 04/08/23
--- OUTSIDE RECORDS SUMMARY | 2024-08-21 08:43 | XMS_ITS | Encounter Summary ---
Author Organization [facility] Healthcare Address [address] [place] [address] Care Team Providers Care Personal Support Worker Name Role Phone Meka Cline Primary Care Provider [phone] Erica Mckeon MD Unavailable [phone] Samaria Braden MD Unavailable Leida Timmons MD Unavailable [phone] Melinda Damian NP Unavailable [phone] Aft, Marisa Dela Cruz MD PhD Unavailable [phone] Thelma Martinez TOOL ROOM SUPERVISOR Unavailable [phone] Roosevelt Rizzo MD Unavailable Lexie Vaz MD Unavailable [phone] Naina Mccoy OD Unavailable [phone] Nata Teran NP Primary Care Provider [phone] Shahida Mena Unavailable [phone] Encounter Details Date Type Department Care Team (Late st Contact Info) Description 09/03/2020 Telephone [facility] [address] [place] [id number] Jill Collins, RT Social History Tobacco Use Types Packs/Day Years Used Date Smoking Tobacco: Never Smokeless Tobacco: Never Alcohol Use Standard Drinks/Week Comments No 0 (1 standard drink = 0.6 oz pur e alcohol) PHQ-2 Answer Date Recorded PHQ-2 Total Score (If total score is 3 or more points, staff should administer the PHQ-9) 0 08/22/2020 Comments No Sex and Gender Information Value Date Recorded Sex Assigned at Not on file Legal Sex Female 3:29 AM CANE SPLICER Gender Identity Not on file Sexual Orientation [...] documented as of this encounter Care Teams Personal Support Worker Relationship Specialty Start Date End Date Meka Cline DO PCP - General Family Medicine 10/24/18 07/29/23 Nata Teran NP [address] [address] PCP - General Family Medicine 07/30/23 Erica Mckeon MD [address] [place] [address] [address] [place] [address] Consulting Physician Endocrinology 11/22/18 09/19/23 Samaria Braden MD [address] [place] [address] [place] [address] Consulting Physician Cardiology 11/22/18 Leida Timmons MD [address] [place] [address] [place] [address] Referring Physician Gastroenterology 11/22/18 03/19/22 Melinda Damian, TOOL ROOM SUPERVISOR [address] [place] [address] [address] [place] [address] Nurse Practitioner Medical Oncology 11/22/18 Marisa Solo MD PhD [address] [place] [address] [address] [place] [address] Surgeon Surgical Oncology 11/22/18 03/19/22 Thelma Martinez, TOOL ROOM SUPERVISOR [address] [place] [address] [address] [place] [address] Nurse Practitioner Endocrinology Diabetes & Metabolism 01/22/20 Roosevelt Rizzo MD [address] [facility] [address] [place] [address] Consulting Physician Urology 08/25/21 03/19/22 Lexie Vaz MD [address] [facility] [address] [place] [address] Consulting Physician Nephrology 08/25/21 Naina Mccoy, FRANCIA [address] [facility] [address] [place] [address] Optometry 04/08/23 Shahida Mena, PRIMOE [address] [facility] [address] [place] [address] Flat Sheet Maker 02/09/24 06/11/24 documented as of this encounter
--- OUTSIDE RECORDS SUMMARY | 2024-08-21 08:43 | XMS_ITS | Encounter Summary ---
Author Organization [facility] Healthcare Address [address] [place] [address] Care Team Providers Care Nut Cracker Name Role Phone Samaria Braden MD Unavailable Melinda Damian NP Unavailable [phone] Thelma Martinez NP Unavailable [phone] Lexie Vaz MD Unavailable [phone] Naina Mccoy OD Unavailable [phone] Nata Teran NP Primary Care Provider [phone] Reason for Visit * Reason Onset Date Comments Referral Request 07/24/2024 Encounter Details Date Type Department Care Team (Late st Contact Info) Description 07/24/2024 Telephone [facility] [place] [address] [place] [address] [address] [place] [address] Nata Teran SLUDGE CONTROL OPERATOR [address] [place] [address] Referral Request Social History Tobacco Use Types Packs/Day Years [...] on file Legal Sex Female 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 I'll try again later. * Telephone Encounter - Octavio Omer - 07/24/2024 2:31 PM CDT Referral Provider [facility]: [facility] Specialty: hearing Address: [address] [place] [address], Zip: [place] [address] Phone: [phone] Diagnosis Code/Symptom/Reason Patient is being seen: hearing test Date of Appointment: not yet set NPI#: na Tax ID#: na Is insurance in chart up to date? yes Additional Comments: na Does message need to be routed? Yes-Action Needed documented in this encounter Plan of Treatment Not on file documented as of this encounter Visit Diagnoses Not on filedocumented in this encounter Care Teams Nut Cracker Relationship Specialty Start Date End Date Nata Teran NP [address] [address] PCP - General Family Medicine 07/30/23 Samaria Braden MD Consulting Physician Cardiology 11/22/18 Melinda Damian NP Nurse Practitioner Medical Oncology 11/22/18 Thelma Martinez NP Nurse Practitioner Endocrinology Diabetes & Metabolism 01/22/20 Lexie Vaz MD Consulting Physician Nephrology 08/25/21 [place] [address] [facility] [address] [place] [address] [place] [id number] Optometry 04/08/23 documented as of this encounter
--- OUTSIDE RECORDS SUMMARY | 2024-08-21 08:43 | XMS_ITS | Clinical Summary ---
Author Organization [facility] Address [address] [place] [address] Phone Care Team Providers Care Change Management Facilitator Name Role Phone Josy Nayak MD Primary Care Provider + Social History Tobacco Use Types Packs/Day Years Used Date Smoking Tobacco: Never Assessed Comments Unknown Sex and Gender Information Value Date Recorded Sex Assigned at Not on file Legal Sex Female 12:30 AM CDT Gender Identity Not on file Sexual Orientation Not on file Plan of Treatment Health Maintenance Due Date Last Done Comments Hepatitis C Virus (HCV) Screening 1935 TdaP Immunization 1935 Pneumococcal Immunization (5 0+ years) (1 of 1 - PCV) 06/30/1985 Zoster Immunization (1 of 2) 06/30/1985 Respiratory Syncytial Virus (RSV) Immunization (Adult) (1 - 1-dose 75+ series) 06/30/2010 Influenza Immunization (#1) 2023 SARS-COV-2 Immunization (2023- season) 2023 07/09/2020, 06/17/2020 Hepatitis B Immunization Aged Out No longer eligible based on patient's age to complete this topic Meningococcal Immunization (ACWY) Aged Out No longer eligible b ased on patient's age to complete this topic Rotavirus Immunization Aged Out No lo nger eligible based on patient's age to complete this topic Insurance MEDICARE MEDICAID [employer] Care Teams Change Management Facilitator Relationship Specialty Start Date End Date Josy Nayak MD [address] [place] [id number] PCP - General Family Medicine 10/28/17
--- OUTSIDE RECORDS SUMMARY | 2024-08-21 08:44 | XMS_ITS | Referral Summary ---
Author Organization [facility] Healthcare Address [address] [place] [address] Care Team Providers Care Hand I Thermal Cutter Name Role Phone Samaria Braden MD Unavailable Melinda Damian REFINERY OPERATOR Unavailable [phone] Thelma Martinez REFINERY OPERATOR Unavailable [phone] Lexie Vaz MD Unavailable Naina Mccoy OD Unavailable [phone] Nata Teran NP Primary Care Provider Encounters Date Type Department Care Team Description 07/25/2024 Orders Only [facility] Primary Care at [address] [address] Nata Teran NP Decreased hearing of both ears (Primary Dx) 07/24/2024 Telephone [facility] Primary Care at [address] [address] Nata Teran NP Referral Request 06/19/2024 Results Follow-Up [facility] Primary Care at [address] [address] Nata Teran NP TSH 06/16/2024 3:10 PM CDT - 06/16/2024 11:59 PM CDT Hospital Encounter [address] [address] [place] [address] Postablative hypothyroidism Discharge Disposition: Discharge to home or self care 06/16/2024 3:00 PM CDT Lab [facility] Outpatient Lab at [place] [address] [facility] [address] [place] [address] Postsurgical hypothyroidism (Primary Dx) 06/12/2024 Diabetic Education [facility] Organization [address] [place] [id number] Shahida Mena CDE 05/29/2024 Diabetic Education [address] [address] Shahida Mena CDE from Last 3 Months Allergies Active Allergy Reactions Criticality Noted Date Comments Furosemide Itching Low 06/02/2023 Lasix has a sulfa component. Sulfa (Sulfonamide Antibiotics) Rash Medium Medications pen needle, diabetic 31 gauge x 3/16 needle Use to inject insulin 2 times [...] for diabetes. E11.65 1 kit 1 05/04/19 25 Active blood glucose diagnostic (glucose blood) strip Check blood sugar 2x times a day or as directed. E11.65 200 each 05/04/19 25 Active levothyroxine (SYNTHROID) 88 mcg tablet Take [...] (08/31/2023 6:49 PM CDT): Referral to different strategic partnership representative as requested. No visible change in facial lesion Assessment & Plan (07/30/2023 4:20 PM CDT): Referral to dermatology as requested Disorder of lacrimal gland 07/29/2023 Retinal hemorrhage of right eye 04/08/2023 Assessment & Plan (04/08/2023 3:29 PM FOOD SERVICES DIRECTOR): Labs ordered per color printer operator's request. Dysuria 04/08/2023 Mild aortic stenosis 2022 Non-seasonal allergic rhinitis due to pollen Assessment & Plan (11/12/2023 6:44 PM CDT): Trial fluticasone nasal spray as discussed. Assessment & Plan (11/05/2021 10:44 AM CDT): Nasal saline spray (Simply saline, Little Remedies, [place], [place]) 2 second sprays or 2 squeezes into [...] Continue Hearing aids Obtained hearing test from [facility] [address] [address] [phone] Decreased hearing of both ears 08/25/2021 Assessment & Plan (08/31/2023 6:54 PM CDT): Bilateral hearing aids, has difficulty hearing even with them. Discussed following up with the supervisor shearing to make sure her hearing aids are in good working order Assessment & Plan (08/25/2021 11:16 AM CDT): Referred to ENT for further eval/mgmt. Urinary frequency 08/25/2021 Assessment & Plan (09/03/2022 3:52 PM CDT): Chronic, referred to urology for further eval/mgmt. Assessment & Plan (03/23/2022 10:08 AM FOOD SERVICES DIRECTOR): Labs ordered, will follow. Assessment & Plan (08/25/2021 11:16 AM CDT): UA ordered, will follow. Chronic pain syndrome 01/31/2021 Assessment & Plan (08/31/2023 6:53 PM CDT): Patient does not take any analgesics Assessment & Plan (01/31/2021 12:35 PM FOOD SERVICES DIRECTOR): Referred to pain mgmt per patient's request. Traumatic complete tear of left rotator cuff 02/2021 Assessment & Plan (01/31/2021 12:35 PM FOOD SERVICES DIRECTOR): H/o of rotator cuff injury, patient would [...] losartan. Assessment & Plan (01/31/2021 12:34 PM FOOD SERVICES DIRECTOR): Stable, cont current meds. Assessment & Plan (02/05/2020 3:19 PM FOOD SERVICES DIRECTOR): Increase water intake, continue current medications. Influenza vaccine refused 03/28/2019 Urge incontinence of urine 11/22/2018 Assessment & Plan (09/03/2022 3:57 PM CDT): Chronic, referred to urology for further eval/mgmt. Assessment & Plan (03/28/2019 11:30 AM FOOD SERVICES DIRECTOR): Clinically improved, continue current meds. Assessment & Plan (11/22/2018 10:33 AM CDT): Side-effects from oxybutynin, discontinue. Referred to urology. Patient to continue to use bladder leak pads. Overweight with body mass in dex (BMI) of 26 to 26.9 in adult 11/22/2018 Assessment & Plan (03/06/2024 4:02 PM FOOD SERVICES DIRECTOR): BMI 26.73. Assessment & Plan (08/31/2023 6:52 PM CDT): BMI 27.10. Encourage weight loss Assessment & Plan (07/30/2023 4:18 PM CDT): BMI 26.08 Assessment & Plan (03/09/2023 2:51 PM FOOD SERVICES DIRECTOR): This is a chronic condition which continues 2 lb weight gain since last office visit Encouraged continue healthy eating Assessment & Plan (03/28/2019 11:31 AM FOOD SERVICES DIRECTOR): Improved. Encouraged patient to decrease weight, increase daily exercise, and modify diet. Assessment & Plan (11/22/2018 10:34 AM CDT): Worsening. Encouraged patient to decrease weight, increase daily exercise, and modify diet. Constipation 10/26/2018 Overview (10/26/2018): Added automatically from request for surgery [id number] Rotator cuff tear, non-traumatic, left 8 Assessment [...] filled since May of 2018 it appears. [facility] checked and there is no record of [...] shoulder. Assessment & Plan (03/28/2019 11:30 AM FOOD SERVICES DIRECTOR): Unable to see Ortho because they did [...] ordered Assessment & Plan (03/28/2019 11:29 AM FOOD SERVICES DIRECTOR): Asx. Continue current therapy. Assessment & Plan (11/22/2018 10:30 AM CDT): Take daily supplement of vitD3 2000 iu daily. HER2-positive carcinoma of left breast 8 Assessment & Plan (03/28/2019 11:31 AM FOOD SERVICES DIRECTOR): Followed by oncology. Chronic eczematous otitis externa [...] 09/06/2017 Assessment & Plan (03/03/2023 9:13 PM FOOD SERVICES DIRECTOR): Asymptomatic. Stable. Continue current prescription medications, famotidine. Assessment & Plan (03/23/2022 10:10 AM FOOD SERVICES DIRECTOR): Clinically improved, continue current prescription medications. Assessment & Plan (08/22/2020 1:09 PM CDT): Stable. Cont. Current meds. Assessment & Plan (07/12/2019 9:50 AM CDT): Symptomatic, trial of famotidine. Rx sent. Do not take ranitidine. Assessment & Plan (03/28/2019 11:29 AM FOOD SERVICES DIRECTOR): Clinically improved, continue current meds. Assessment & [...] treatment. Assessment & Plan (01/31/2024 5:39 PM FOOD SERVICES DIRECTOR): This is a chronic condition which is [...] ordered Assessment & Plan (04/08/2023 3:29 PM FOOD SERVICES DIRECTOR): Most recent TSH was out of range, will repeat TSH. Managed by endocrinology. Assessment & Plan (03/03/2023 9:14 PM FOOD SERVICES DIRECTOR): Asymptomatic. Stable. Continue current prescription medications, levothyroxine. [...] tsh. Assessment & Plan (03/23/2022 10:09 AM FOOD SERVICES DIRECTOR): Asymptomatic. Stable. Continue current prescription medications. Assessment & Plan (02/20/2022 12:27 PM FOOD SERVICES DIRECTOR): This is a chronic condition which is [...] medications. Assessment & Plan (03/04/2021 3:24 PM FOOD SERVICES DIRECTOR): Asymptomatic. Stable. Continue current prescription medications. Assessment & Plan (08/22/2020 1:08 PM CDT): Asx. Continue current therapy. Assessment & Plan (02/05/2020 3:19 PM FOOD SERVICES DIRECTOR): Asx. Continue current therapy. Assessment & Plan (01/03/2020 11:13 AM CDT): Check TSH today. Continue current medication. Assessment & Plan (07/12/2019 9:50 AM CDT): Cont current dosage of levothyroxine 88 mcg daily. Will not repeat blood work at this time d/t COVID outbreak and patient's high-risk. Assessment & Plan (03/28/2019 11:29 AM FOOD SERVICES DIRECTOR): Asx. Continue current therapy. Assessment & Plan [...] Mckeon Assessment & Plan (01/31/2024 5:38 PM FOOD SERVICES DIRECTOR): This is a chronic condition which is [...] Has appointment to follow up with Thelma Martniez NP endocrinology on 09/20/2023 Assessment & Plan (07/30/2023 4:16 PM CDT): Continue to limit carbohydrates in diet. Continue current medications. Managed by endocrinology has appointment on 09/20/2023 with Thelma Martinez NP Assessment & Plan (03/09/2023 2:49 PM FOOD SERVICES DIRECTOR): This is a chronic condition which is [...] rosuvastatin Assessment & Plan (03/03/2023 9:14 PM FOOD SERVICES DIRECTOR): A1c at goal of less than 8.0, continue current prescription medications, glimepiride, rosuvastatin, Ozempic. Managed by Endocrinology. Assessment & Plan (11/09/2022 11:37 AM CDT): This is a chronic condition which has worsening but remains at goal of less than 8%. She reports undergoing some recent mouth surgery at [facility]. I explain even though her A1c has [...] daily. Assessment & Plan (03/23/2022 10:09 AM FOOD SERVICES DIRECTOR): A1c at goal of less than 8.0, continue current prescription medications. Managed by Endocrinology. Assessment & Plan (02/20/2022 12:26 PM FOOD SERVICES DIRECTOR): This is a chronic condition which is [...] No history of macrovascular disease - [place]. Assessment & Plan (11/10/2021 12:28 PM CDT): [...] No history of macrovascular disease - [place]. Assessment & Plan (08/25/2021 11:10 AM CDT): [...] No history of macrovascular disease - [place]. Assessment & Plan (03/04/2021 3:24 PM FOOD SERVICES DIRECTOR): microalbumin less than 30. Managed by endocrinology. [...] No history of macrovascular disease - [place]. Assessment & Plan (09/26/2020 3:57 PM CDT): [...] eye exam was 05/19/2019. Appt made for 7/31/21 Monofilament exam- decreased sensation to feet, but [...] No history of macrovascular disease - [place]. Assessment & Plan (08/22/2020 1:08 PM CDT): [...] No history of macrovascular disease - [place]. Assessment & Plan (03/06/2020 4:55 PM FOOD SERVICES DIRECTOR): This is a chronic condition which is [...] No history of macrovascular disease - [place]. Assessment & Plan (02/05/2020 3:19 PM FOOD SERVICES DIRECTOR): Managed by endocrinology Assessment & Plan (12/19/2019 [...] rosuvastatin history of macrovascular disease - [place]. Assessment & Plan (09/18/2019 11:05 AM CDT): [...] last dilated eye exam was done at [facility] by Dr. Jimenez loss of protective sensation to feet Urine microalbumin/creatinine ratio - Unable to void today currently amlodipine 5mg po daily. BP today- 124/72 , currently on amlodipine 5mg po daily, metoprolol 25mg po daily. * LDL - 53, currently on rosuvastatin 10 mg daily history of macrovascular disease - [place]. Assessment & Plan (08/07/2019 10:34 AM CDT): [...] endocrinology. Assessment & Plan (03/28/2019 11:30 AM FOOD SERVICES DIRECTOR): Managed by endocrinology. Assessment & Plan (11/22/2018 10:31 AM CDT): Elevated A1c, encouraged tighter control of BS. Managed by Endocrinology. On insulin. Hypercalcemia 07/17/2014 Chronic uremia 07/06/2013 Overview (06/26/2016): Chronic renal failure Hyperlipidemia associated with type 2 diabetes nina richards 05/31/2013 Overview (11/22/2018): Assessment & Plan (01/31/2024 5:39 PM FOOD SERVICES DIRECTOR): This is a chronic condition which is [...] ordered Assessment & Plan (03/09/2023 2:50 PM FOOD SERVICES DIRECTOR): This is a chronic condition which is at goal of LDL less than 70 Continue rosuvastatin. Encouraged to eat healthy, include fresh fruits and vegetables daily and avoid eating fried foods more than once per week. Encouraged to take medications as prescribed. Assessment & Plan (03/03/2023 9:12 PM FOOD SERVICES DIRECTOR): LDL at goal of less than 100, [...] rosuvastatin. Assessment & Plan (03/23/2022 10:09 AM FOOD SERVICES DIRECTOR): LDL at goal of less than 100, [...] prescribed. Assessment & Plan (03/04/2021 3:23 PM FOOD SERVICES DIRECTOR): LDL at goal of less than 70. Continue current Prescription medications. Assessment & Plan (01/31/2021 12:34 PM FOOD SERVICES DIRECTOR): LDL at goal of < 70. Cont [...] prescribed. Assessment & Plan (03/06/2020 4:57 PM FOOD SERVICES DIRECTOR): This is a chronic condition which is stable, controlled,at goal. Goal is less than 70. Personally reviewed lipid panel. LDL-65 Encouraged to eat healthy, include fresh fruits and vegetables daily and avoid eating fried foods more than once per week. Please take medications as prescribed. Continue on crestor 10mg daily. Assessment & Plan (02/05/2020 3:19 PM FOOD SERVICES DIRECTOR): Stable. Cont. Current meds. Assessment & Plan (01/03/2020 11:13 AM CDT): Stable. Lipid abnormalities are stable, reviewed previous lipid levels in [facility]. Pharmacotherapy as ordered. Order for lipid [...] meds. Assessment & Plan (03/28/2019 11:29 AM FOOD SERVICES DIRECTOR): Clinically improved, continue current meds. Assessment & Plan (11/22/2018 10:29 AM CDT): Clinically improved, continue current meds. Primary hypertension 08/10/2012 Overview (11/22/2018): Assessment & Plan (01/31/2024 5:39 PM FOOD SERVICES DIRECTOR): This is a chronic condition which is [...] daily Assessment & Plan (03/03/2023 9:12 PM FOOD SERVICES DIRECTOR): Blood pressure at goal less than 140/90, continue current prescription medications, amlodipine. Assessment & Plan (09/03/2022 3:53 PM CDT): Blood pressure at goal less than 140/90, continue current prescription medications, losartan. Assessment & Plan (03/23/2022 10:09 AM FOOD SERVICES DIRECTOR): BP near goal of < 140/90. Encouraged low sodium diet. Continue current Rx meds. Monitor home bps and send in bp readings in one week. Assessment & Plan (02/20/2022 12:26 PM FOOD SERVICES DIRECTOR): This is a chronic condition which is [...] medication Assessment & Plan (03/04/2021 3:23 PM FOOD SERVICES DIRECTOR): Clinically improved, continue current prescription medications. Assessment & Plan (01/31/2021 12:33 PM FOOD SERVICES DIRECTOR): Elevated, patient did not take bp meds [...] Goal Assessment & Plan (03/06/2020 4:56 PM FOOD SERVICES DIRECTOR): This is a chronic condition and is stable, controlled at Goal is <140/90 Personally reviewed labs. Avoid caffeine, caffeine will raise blood pressure and excessive alcohol consumption. Monitor your weight and B/P. Please take medications as prescribed. B/P today- 110/58 , currently on metoprolol, lisinopril 10 mg po daily, at Goal Assessment & Plan (02/05/2020 3:18 PM FOOD SERVICES DIRECTOR): Stable. Cont. Current meds. Assessment & Plan [...] bps. Assessment & Plan (03/28/2019 11:28 AM FOOD SERVICES DIRECTOR): Stable. Cont. Current meds. Assessment & Plan [...] (10/26/2018): Added automatically from request for surgery [id number] Pain 06/02/2018 11/22/2018 Skin ulcer 01/30/2018 11/22/2018 [...] is not new. Compared to old EKG's 2003-NORMAL SINUS RHYTHM WITH 1ST DEGREE A?V BLOCK [...] Nayak on Wednesday and make appointment with Chamfering Machine Operator Thumb pain 06/04/2015 03/01/2018 Overview (06/26/2016): Pain of left thumb Acute sinusitis 04/23/2015 03/01/2018 Overview (06/26/2016): Acute sinusitis, recurrence not specified, unspecified location Screening status 04/23/2015 03/01/2018 Overview (06/26/2016): Screening Pain of foot 03/04/2015 03/01/2018 Overview (06/26/2016): Right foot pain Serum creatinine raised 07/17/201409/2019 Carcinoma of breast 07/17/2014 09/16/19 18 History of malignant neoplasm of breast 07/11/2013 09/15/2017 Postoperative state 05/31/2013 03/01/20 18 Overview (06/24/2016): S/P radioactive iodine thyroid ablation Malignant neoplasm of breast 05/31/2013 09/15/2017 Overview (06/24/2016): 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 (06/25/2016): Graves disease Immunizations Immunization Administration Dates Next Due Influenza, Trivalent, IM (MDV) 01/04/2014 Influenza, Unspecified 03/03/2024(Deferr ed: Patient Refused),05/04/2023(Deferred: Patient Refused),12/28/2022(Deferred: Patient Refused),05/04/2022(Deferred: Patient Refused) Pfizer SARS-CoV-2 Monovalent Vaccination (12+ Yrs) PURPLE 07/09/2020,06/17/2020 Pneumococcal Conjugate PCV 13 11/13/2015 Pneumococcal Polysaccharide PPV23 03/31/2017 ZOSTER LIVE 06/04/2015 Social History Tobacco Use Types Packs/Day Years [...] on file Legal Sex Female 3:29 AM FOOD SERVICES DIRECTOR Gender Identity Not on file Sexual Orientation Not on file Last Filed Vital Signs Vital Sign Reading Time Taken Comments Blood Pressure 128/68 05/04/2024 2:27 PM FOOD SERVICES DIRECTOR Pulse 80 03/06/2024 12:54 PM FOOD SERVICES DIRECTOR Temperature 36.5 C (97.7 F) 03/06/2024 12:54 PM FOOD SERVICES DIRECTOR Respiratory Rate 14 05/04/2023 3:15 PM FOOD SERVICES DIRECTOR Oxygen Saturation 95% 03/06/2024 12:54 PM FOOD SERVICES DIRECTOR Inhaled Oxygen Concentration - - Weight 64.1 kg (141 lb 6.4 oz) 05/04/2024 2:27 P M FOOD SERVICES DIRECTOR Height 157.5 cm (5' 2) 05/04/2024 2:27 PM FOOD SERVICES DIRECTOR Body Mass Index 25.86 05/04/2024 2:27 PM FOOD SERVICES DIRECTOR Plan of Treatment Not on file Procedures Procedure Name Priority Date/Time Associated Diagnosis Comments TSH Routine 06/16/2024 3:10 PM CDT Postablative hypothyroidism POCT HEMOGLOBIN A1C Routine 05/04/2024 2:31 PM FOOD SERVICES DIRECTOR Type 2 diabetes mellitus with hyperglycemia, without long-term current use of insulin (HCC) EGFR Routine 03/06/2024 1:57 PM FOOD SERVICES DIRECTOR Primary hypertension LIPID PANEL Routine 03/06/2024 1:57 PM FOOD SERVICES DIRECTOR Hyperlipidemia associated with type 2 diabetes mellitus (HCC) DEXA AXIAL SKELETON BONE DENSITY 1 OR MORE SITES Schedule Routine, Read Routine (OP Routine) 08/10/2023 10:32 AM CDT Screening for osteoporosis Post-menopause ALBUMIN CREATININE RATIO, URINE Routine 07/30/2023 2:05 PM CDT Type 2 diabetes mellitus without complication, without long-term current use of insulin (HCC) DIABETIC EYE EXAM Routine 03/23/2023 DIABETES FOOT EXAM Routine 05/17/2017 from Last 3 Months or Most Recently Relevant to Health Maintenance Results * TSH (06/16/2024 3:10 PM CDT) Thyroid Stimulating Hormone 0.56 0.30 - 4.20 mcIUnit/mL Blood 06/16/2024 3:10 PM CDT 06/16/2024 8:43 PM CDT us Nata Teran REFINERY OPERATOR LAB BLOOD ORDERABLES Final Re sult [facility] [address] Department [place] [address] * POCT hemoglobin A1c (05/04/2024 2:31 PM FOOD SERVICES DIRECTOR) Pathologist [facility] Hemoglobin A1C, POC 7.6 4.0 - 5.6 % Blood 05/04/2024 2:31 PM FOOD SERVICES DIRECTOR Thelma Martinez NP POINT OF CARE TEST ORDERABLES F inal Result * (ABNORMAL) eGFR (03/06/2024 1:57 PM FOOD SERVICES DIRECTOR) Pathologist [facility] eGFR 58(L) >=60 mL/min/1. 73 m2 Comment: [...] of Race in Diagnosing Kidney Disease, JASN 202). The CKD-EPI equation should not be used for patients with unstable renal function and has not been validated in children and those over 70. Current interpretive data was last reviewed 2021. Blood 03/06/2024 1:57 PM FOOD SERVICES DIRECTOR 03/06/2024 9:00 PM FOOD SERVICES DIRECTOR Nata Teran NP LAB [place]LO[place] [address] [address] Department [place] [address] * (ABNORMAL) Lipid panel (03/06/2024 1:57 PM FOOD SERVICES DIRECTOR) Cholesterol 217(H) 30 - 199 mg/dL Comment: [...] on 2017. Triglycerides 166(H) <=149 mg/dL [facility] Comment: Interpretive Data Ages < or = [...] on 2017. HDL 55 >=40 mg/dL [facility] Comment: Interpretive Data Ages < or = [...] 2017. LDL, calculated 133(H) <=129 mg/dL [facility] Comment: Interpretive Data Ages < or = [...] 3. Greg Brandon et al. JANICE Cardiol. 2020 July 20;5(5):540-548. doi: [email or web address].2020.0013 Current Interpretive Data was [...] 4 [facility] Blood 03/06/2024 1:57 PM FOOD SERVICES DIRECTOR 03/06/2024 8:49 PM FOOD SERVICES DIRECTOR Nata Teran REFINERY OPERATOR LAB BLOOD ORDERABLES Final Re sult [facility] [address] [address] Department [place] [address] * Dexa Axial Skeleton Bone Density 1 or 2 Site (08/10/2023 10:32 AM CDT) Anatomical Region Laterality Modality Body N/A Other 08/10/2023 6:56 PM CDT Narrative 08/10/2023 6:57 PM CDT EXAM DESCRIPTION: DEXA AXIAL SKELETON BONE DENSITY 1 OR MORE SITES REASON FOR STUDY: 88 y/o year old F with given history of: screening for osteoporosis Osteoporosis screening Post menopausal Bargain Table Clerk/Model: Riidr Discovery SL (S/N [id number]) CLINICAL INFORMATION: Current height: 62 inches Maximum [...] Francisco Coburn M.D. MF: GEMMA Report ID: [id number] Reading Location: [id number] Procedure Note Jose Francisco Coburn MD - 08/10/2023 EXAM DESCRIPTION: DEXA AXIAL SKELETON BONE DENSITY 1 OR MORE SITES REASON FOR STUDY: 88 y/o year old F with given history of: screeningfor osteoporosis Osteoporosis screening Post menopausal Bargain Table Clerk/Model: Highfive (S/N [id number]) CLINICAL INFORMATION: Current height: 62 inches Maximum [...] Francisco Coburn M.D. MF: GEMMA Report ID: [id number] Reading Location: [place] [address] Nata Teran NP IMG DXA PROCEDURES Final Resu lt * Albumin Creatinine Ratio, Urine (07/30/2023 2:05 PM CDT) Albumin Ur 89.2 mg/L Comment: Interpretive Data No reference range established. Current interpretive data was last revised 2018. Creatinine Ur 326.1 mg/dL [facility] Comment: Interpretive Data No reference range established. Current interpretive data was last revised 2018. Albumin Creatinine Ratio, Ur 27 1 - 29 mg/g [facility] Urine 07/30/2023 2:05 PM CDT 07/30/2023 8:51 PM CDT Nata Teran NP LAB URINE ORDERABLES Final Re sult [facility] [address] Department [place] [address] * Diabetic Eye Exam (03/23/2023) us Generic External Data Provider HEALTH MAINTENANC E Final Result * DIABETES FOOT EXAM (05/17/2017) Pathologist [facility] Diabetic Foot Exam Unknown us Historical Provider HEALTH MAINTENANCE Final Result from Last 3 Months or Most Recently Relevant to Health Maintenance Insurance [facility] H[facility] HMO Advance Directives For more information, please contact: [phone] * Full Code (Latest Code Status on File) Date Activated Date Inactivated Comments 11/10/2018 7:54 AM 11/10/2018 1:44 PM Care Teams Hand I Thermal Cutter Relationship Specialty Start Date End Date Nata Teran REFINERY OPERATOR [address] [facility] [address] [place] [address] PCP - General Family Medicine 07/30/23 Samaria Braden MD Consulting Physician Cardiology 11/22/18 Melinda Damian NP Nurse Practitioner Medical Oncology 11/22/18 Thelma Martinez, TORRIE Nurse Practitioner Endocrinology Diabetes & Metabolism 01/22/20 Lexie Vaz MD Consulting Physician Nephrology 08/25/21 Naina Mccoy, FRANCIA [address] [facility] [address] [place] [address] Optometry 04/08/23
== END 2024-08-21 08:29 | disposition home or self-care (01) ==
LOC: ANHAUDASC 08:29
PROVIDERS: Visit Provider Otolaryngology
DX: H90.3 Sensorineural hearing loss, bilateral (principal); Z97.4 Presence of external hearing-aid
CPT/HCPCS: 92557; 92567